=== PATIENT | female | born 1965 | race Caucasian/White ===

== ENCOUNTER 2017-10-18 17:26 | Inpatient (IN) | payer MEDICAID, SELFPAY ==
[2017-10-18 16:35] VITALS: BP 126/78; PULSE 79; RESP 18; TEMP 36.6; O2SAT 98
[2017-10-18 16:37] VITALS: BMI 27.3
--- NOTE | 2017-10-18 17:04 | PCM.HP.STD ---
<Dustin Azul - Last Filed: 10/18/17 17:04> Problem List (1) Cellulitis Status: Acute Qualifiers: Site of cellulitis: extremity Site of cellulitis of extremity: upper extremity Laterality: right Qualified Code(s): L03.113 - Cellulitis of right upper limb (2) Nicotine abuse Status: Chronic (3) Diabetes Status: Chronic Qualifiers: Diabetes mellitus type: type 2 (4) Arthritis Status: Chronic (5) RLS (restless legs syndrome) Status: Chronic (6) Depression Status: Chronic History of Present Illness Date of Admission: 10/18/17 Chief Complaint: right arm wound The patient is a 52 year old F with a hx of diet controlled DMt2, nicotine abuse, depression, arthritis, and RLS, who presents as a direct admit from [facility] ER with pain, swelling, and discharge from a wound on her right upper extremity. She things she scraped it while working outdoors last week. She had some tight arm bands over the area and woke up with severe swelling that caused the arm bands to dig deeply into the tissue of her arms. She presented to [facility] ER on the , had elevated white count and was prescribed clindamycin. She thinks she has had some improvement in the redness, however she became more concerned when the wound opened and she had copious amounts of foul smelling mucopurulent drainage. She denies prior skin infections. She had subjective fevers and chills at home as well, though does not not currently have a fever. She denies cough, SOB, abdominal pain, diarrhea. She has some nausea without vomiting. She states she is a diet controlled diabetic - last a1c 6 months ago was 5.9, used to take glucotrol but no longer does. [] Past Medical History Past Medical History (Chronic Problems): Chronic Problems Nicotine abuse (Chronic) Diabetes (Chronic) Arthritis (Chronic) RLS (restless legs syndrome) (Chronic) Depression (Chronic) Allergies No Known Allergies Allergy (Verified 06/29/13 11:32) Home Medications: Ambulatory Orders Medication Instructions Recorded Clindamycin HCl 300 mg PO 4X/DAY 10/18/17 Gabapentin [Neurontin] 100 mg PO TID 10/18/17 Lamotrigine [Lamictal] 50 mg PO QHS 10/18/17 Meloxicam [Mobic] 15 mg PO DAILY 10/18/17 Sertraline HCl [Zoloft] 100 mg PO QHS 10/18/17 Surgical History: - - cessarian Psychiatric History: Depression 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 Denies: Weight Change HEENT: Denies: Head Aches, Sinus Congestion, Sinus Drainage Cardiovascular: Denies: Chest Pain, Palpitations Respiratory: Denies: Cough, Shortness of Breath, Shortness of breath at rest, Sputum production Gastrointestinal: Reports: Nausea. Denies: Abdominal Pain, Diarrhea, Vomiting Genitourinary: Denies: Dysuria Musculoskeletal: Denies: Joint Pain, Joint Tenderness Skin: Reports: Wounds - right upper ext wound with copious drainage. Denies: Rash Neurological: Denies: Numbness, Tingling, Focal weakness Psychiatric: Reports: Depression. Denies: Anxiety, Homicidal Ideations, Suicidal Ideations Hematologic/ Lymphatic: Denies: Easy Bruising, Easy Bleeding VTE Information - Inpt Only VTE Present on Admission: No VTE Mechan Device Prophylaxis: SCD's VTE Pharm Prophylaxis ordered?: No Patient Problems: Active and Suspected Problems Cellulitis (Acute) - Physical Exam General: Alert, Oriented x3, Cooperative HEENT: Atraumatic, PERRLA, EOMI, Normocephalic Neck: Supple, No JVD, Negative Carotid Bruits Lungs: Clear to auscultation, Normal air movement Cardiovascular: Regular rate, No murmurs Abdomen: Bowel Sounds Present, Soft, Non Tender Extremities: No edema, Capillary Refill Less than 3 Seconds Skin: No rashes, No breakdown, - - right upper extremity, forearm, with annular open wound with with surrounding erythema, sloughing, mucopurulent drainage, some lymphatic stranding up the right arm. inc warmth and tenderness. Musculoskeletal: No Tenderness to Palpation of Joints or Extremities Neurological: Cranial nerves II-XII grossly intact Psych/Mental Status: Normal Affect, Appropriate, Alert and oriented to time, place, person, mood and affect Vital Signs Temp Pulse Resp BP Pulse Ox 97.8 F 79 18 126/78 H 98 10/18/17 16:35 10/18/17 16:35 10/18/17 16:35 10/18/17 16:35 10/18/17 16:35 Oxygen Delivery Method Room Air Weight: 74.389 kg Body Mass Index (BMI) 27.3 Assessment/Plan Active and Suspected Problems Cellulitis (Acute) 1. Cellulitis and abscess RUE in diabetic patient. - now open and draining, small lymph stranding up proximal forearm. Was on clinda x 2 days as outpatient. Somewhat improved. White count resolved (see o/p labs 14-7.8). Wound cultures taken at [facility] - call for report. XR with soft tissue involvement only. Will check CT RUE. Not septic. Start IV vanco. Check MRSA/MSSA screen. Wound care nurse consult. 2. DMt2 - diet controlled - sliding scale. check a1c - last 5.9 6 months ago. restart orals on dc if appropriate. 3. Nicotine abuse - will slow wound healing. 1/2-1 ppd x 42 years. 4. Depression - home meds 5. Arthritis - on mobic/lucy. continue. DVT ppx: lovenox DC planning: Home when stable, doubt home going needs. This patient was seen by Dustin Azul PA-C under the supervision of Doctor Mayda. <Martinez Ohara - Last Filed: 10/18/17 18:27> Problem List (1) Cellulitis Status: Acute Qualifiers: Site of cellulitis: extremity Site of cellulitis of extremity: upper extremity Laterality: right Qualified Code(s): L03.113 - Cellulitis of right upper limb (2) Nicotine abuse Status: Chronic (3) Diabetes Status: Chronic Qualifiers: Diabetes mellitus type: type 2 (4) Arthritis Status: Chronic (5) RLS (restless legs syndrome) Status: Chronic (6) Depression Status: Chronic History of Present Illness The patient is a 52 year old F who developed cellulitis on her arm. This began last week when patient had a hair band on her arm. Patient went to sleep and then woke up and had redness and tightness over that area. Patient had an open wound and then subsequent to [facility] and I received clindamycin. Patient has some surrounding erythema. Patient was [facility]. Patient states that the redness has improved but still is draining was foul-smelling a one-point. 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 Denies: Weight Change HEENT: Denies: Head Aches, Sinus Congestion, Sinus Drainage Cardiovascular: Denies: Chest Pain, Palpitations Respiratory: Denies: Cough, Shortness of Breath, Shortness of breath at rest, Sputum production Gastrointestinal: Reports: Nausea. Denies: Abdominal Pain, Diarrhea, Vomiting Genitourinary: Denies: Dysuria Musculoskeletal: Denies: Joint Pain, Joint Tenderness Skin: Reports: Wounds. Denies: Rash Neurological: Denies: Focal weakness, Numbness, Tingling Psychiatric: Reports: Depression. Denies: Anxiety, Homicidal Ideations, Suicidal Ideations Hematologic/ Lymphatic: Denies: Easy Bruising, Easy Bleeding VTE Information - Inpt Only VTE Present on Admission: No VTE Mechan Device Prophylaxis: SCD's VTE Pharm Prophylaxis ordered?: No - Physical Exam General: Alert, Cooperative, No apparent distress HEENT: Atraumatic, Normocephalic Neck: Supple, No JVD, Negative Carotid Bruits, Negative Hepatojugular Reflux Lungs: Clear to auscultation, Normal air movement Skin: - Psych/Mental Status: Normal Affect, Appropriate Vital Signs Temp Pulse Resp BP Pulse Ox 36.6 C 79 18 126/78 H 98 10/18/17 16:35 10/18/17 16:35 10/18/17 16:35 10/18/17 16:35 10/18/17 16:35 Oxygen Delivery Method Room Air Weight: 74.389 kg Body Mass Index (BMI) 27.3 Assessment/Plan Patient seen and examined independently. Agree with the above note by the physician assistants. 1. right upper extremity cellulitis and abscess The abscess has already drained but patient does have a deep wound there. This is likely due to the fact the patient likely had some trauma associated with prolonged compression due to the hair band that she had on her wrist. Patient notes that the surrounding cellulitis is actually improved since starting on the clindamycin but just more concerned about the drainage that is ongoing Patient will be on vancomycin now Patient had wound ulcer performed at [facility]. They will need to be followed up. And antibiotics addressed accordingly based on results. Will check a CT scan to see if there is any deeper compromise that may warrant a plastics orthopedics to be on consultation. Will have wound care assess and further recommendations. In the meantime, patient will just have dry dressings. Code Visit Inpatient E&M: 87459 Init Hosp L2
[2017-10-18 17:18] VITALS: BMI 27.3
--- NOTE | 2017-10-18 17:26 | CT_ITS ---
Study: CT of the right upper extremity without contrast. CLINICAL HISTORY: Abscess, open and draining of a performed Prior study: None. PROCEDURE: Multiple computed tomographic images of the right forearm were obtained at 2.5 mm intervals using 2.5 mm thick slices in axial projection. Coronal and sagittal reconstructions were obtained. Radiation dose: Total exam DLP: 1064.58 FINDINGS: There is an open skin wound of the lateral distal forearm. There is associated subcutaneous fatty stranding and skin thickening. No abscess is identified. No radiopaque soft tissue foreign body or soft tissue gas is noted. Muscular soft tissue fascial planes are preserved. The right radius and ulna appear intact. CT/Extremity Upper without Contra IMPRESSION: Open skin wound of the lateral distal forearm. There is associated subcutaneous fatty stranding and skin thickening consistent with cellulitis. There is no evidence of abscess or subcutaneous gas. Muscular soft tissue fascial planes are preserved. The underlying osseous structures appear normal. Electronically Signed: Melvin Rivera MD at 20:47 EDT , Service support ,
--- NOTE | 2017-10-18 17:30 | HP.PCM_ITS ---
<Dustin Azul - Last Filed: 10/18/17 17:04> Problem List (1) Cellulitis Status: Acute Qualifiers: Site of cellulitis: extremity Site of cellulitis of extremity: upper extremity Laterality: right Qualified Code(s): L03.113 - Cellulitis of right upper limb (2) Nicotine abuse Status: Chronic (3) Diabetes Status: Chronic Qualifiers: Diabetes mellitus type: type 2 (4) Arthritis Status: Chronic (5) RLS (restless legs syndrome) Status: Chronic (6) Depression Status: Chronic History of Present Illness Date of Admission: 10/18/17 Chief Complaint: right arm wound The patient is a 52 year old F with a hx of diet controlled DMt2, nicotine abuse , depression, arthritis, and RLS, who presents as a direct admit from [facility] ER with pain, swelling, and discharge from a wound on her right upper extremity. She things she scraped it while working outdoors last week. She had some tight arm bands over the area and woke up with severe swelling that caused the arm bands to dig deeply into the tissue of her arms. She presented to [facility] ER on the , had elevated white count and was prescribed clindamycin. She thinks she has had some improvement in the redness, however she became more concerned when the wound opened and she had copious amounts of foul smelling mucopurulent drainage. She denies prior skin infections. She had subjective fevers and chills at home as well, though does not not currently have a fever. She denies cough, SOB, abdominal pain, diarrhea. She has some nausea without vomiting. She states she is a diet controlled diabetic - last a1c 6 months ago was 5.9, used to take glucotrol but no longer does. [] Past Medical History Past Medical History (Chronic Problems): Chronic Problems Nicotine abuse (Chronic) Diabetes (Chronic) Arthritis (Chronic) RLS (restless legs syndrome) (Chronic) Depression (Chronic) Allergies No Known Allergies Allergy (Verified 06/29/13 11:32) Home Medications: Ambulatory Orders Medication Instructions Recorded Clindamycin HCl 300 mg PO 4X/DAY 10/18/17 Gabapentin [Neurontin] 100 mg PO TID 10/18/17 Lamotrigine [Lamictal] 50 mg PO QHS 10/18/17 Meloxicam [Mobic] 15 mg PO DAILY 10/18/17 Sertraline HCl [Zoloft] 100 mg PO QHS 10/18/17 Surgical History: - - cessarian Psychiatric History: Depression 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 Denies: Weight Change HEENT: Denies: Head Aches, Sinus Congestion, Sinus Drainage Cardiovascular: Denies: Chest Pain, Palpitations Respiratory: Denies: Cough, Shortness of Breath, Shortness of breath at rest, Sputum production Gastrointestinal: Reports: Nausea. Denies: Abdominal Pain, Diarrhea, Vomiting Genitourinary: Denies: Dysuria Musculoskeletal: Denies: Joint Pain, Joint Tenderness Skin: Reports: Wounds - right upper ext wound with copious drainage. Denies: Rash Neurological: Denies: Numbness, Tingling, Focal weakness Psychiatric: Reports: Depression. Denies: Anxiety, Homicidal Ideations, Suicidal Ideations Hematologic/ Lymphatic: Denies: Easy Bruising, Easy Bleeding VTE Information - Inpt Only VTE Present on Admission: No VTE Mechan Device Prophylaxis: SCD's VTE Pharm Prophylaxis ordered?: No Patient Problems: Active and Suspected Problems Cellulitis (Acute) - Physical Exam General: Alert, Oriented x3, Cooperative HEENT: Atraumatic, PERRLA, EOMI, Normocephalic Neck: Supple, No JVD, Negative Carotid Bruits Lungs: Clear to auscultation, Normal air movement Cardiovascular: Regular rate, No murmurs Abdomen: Bowel Sounds Present, Soft, Non Tender Extremities: No edema, Capillary Refill Less than 3 Seconds Skin: No rashes, No breakdown, - - right upper extremity, forearm, with annular open wound with with surrounding erythema, sloughing, mucopurulent drainage, some lymphatic stranding up the right arm. inc warmth and tenderness. Musculoskeletal: No Tenderness to Palpation of Joints or Extremities Neurological: Cranial nerves II-XII grossly intact Psych/Mental Status: Normal Affect, Appropriate, Alert and oriented to time, place, person, mood and affect Vital Signs Temp Pulse Resp BP Pulse Ox 97.8 F 79 18 126/78 H 98 10/18/17 16:35 10/18/17 16:35 10/18/17 16:35 10/18/17 16:35 10/18/17 16:35 Oxygen Delivery Method Room Air Weight: 74.389 kg Body Mass Index (BMI) 27.3 Assessment/Plan Active and Suspected Problems Cellulitis (Acute) 1. Cellulitis and abscess RUE in diabetic patient. - now open and draining, small lymph stranding up proximal forearm. Was on clinda x 2 days as outpatient. Somewhat improved. White count resolved (see o/p labs 14-7.8). Wound cultures taken at [facility] - call for report. XR with soft tissue involvement only. Will check CT RUE. Not septic. Start IV vanco. Check MRSA/MSSA screen. Wound care nurse consult. 2. DMt2 - diet controlled - sliding scale. check a1c - last 5.9 6 months ago. restart orals on dc if appropriate. 3. Nicotine abuse - will slow wound healing. 1/2-1 ppd x 42 years. 4. Depression - home meds 5. Arthritis - on mobic/lucy. continue. DVT ppx: lovenox DC planning: Home when stable, doubt home going needs. This patient was seen by Dustin Azul PA-C under the supervision of Doctor Mayda. <Martinez Ohara - Last Filed: 10/18/17 18:27> Problem List (1) Cellulitis Status: Acute Qualifiers: Site of cellulitis: extremity Site of cellulitis of extremity: upper extremity Laterality: right Qualified Code(s): L03.113 - Cellulitis of right upper limb (2) Nicotine abuse Status: Chronic (3) Diabetes Status: Chronic Qualifiers: Diabetes mellitus type: type 2 (4) Arthritis Status: Chronic (5) RLS (restless legs syndrome) Status: Chronic (6) Depression Status: Chronic History of Present Illness The patient is a 52 year old F who developed cellulitis on her arm. This began last week when patient had a hair band on her arm. Patient went to sleep and then woke up and had redness and tightness over that area. Patient had an open wound and then subsequent to [facility] and I received clindamycin. Patient has some surrounding erythema. Patient was [facility]. Patient states that the redness has improved but still is draining was foul-smelling a one-point. 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 Denies: Weight Change HEENT: Denies: Head Aches, Sinus Congestion, Sinus Drainage Cardiovascular: Denies: Chest Pain, Palpitations Respiratory: Denies: Cough, Shortness of Breath, Shortness of breath at rest, Sputum production Gastrointestinal: Reports: Nausea. Denies: Abdominal Pain, Diarrhea, Vomiting Genitourinary: Denies: Dysuria Musculoskeletal: Denies: Joint Pain, Joint Tenderness Skin: Reports: Wounds. Denies: Rash Neurological: Denies: Focal weakness, Numbness, Tingling Psychiatric: Reports: Depression. Denies: Anxiety, Homicidal Ideations, Suicidal Ideations Hematologic/ Lymphatic: Denies: Easy Bruising, Easy Bleeding VTE Information - Inpt Only VTE Present on Admission: No VTE Mechan Device Prophylaxis: SCD's VTE Pharm Prophylaxis ordered?: No - Physical Exam General: Alert, Cooperative, No apparent distress HEENT: Atraumatic, Normocephalic Neck: Supple, No JVD, Negative Carotid Bruits, Negative Hepatojugular Reflux Lungs: Clear to auscultation, Normal air movement Skin: - Psych/Mental Status: Normal Affect, Appropriate Vital Signs Temp Pulse Resp BP Pulse Ox 36.6 C 79 18 126/78 H 98 10/18/17 16:35 10/18/17 16:35 10/18/17 16:35 10/18/17 16:35 10/18/17 16:35 Oxygen Delivery Method Room Air Weight: 74.389 kg Body Mass Index (BMI) 27.3 Assessment/Plan Patient seen and examined independently. Agree with the above note by the physician assistants. 1. right upper extremity cellulitis and abscess * The abscess has already drained but patient does have a deep wound there. This is likely due to the fact the patient likely had some trauma associated with prolonged compression due to the hair band that she had on her wrist. * Patient notes that the surrounding cellulitis is actually improved since starting on the clindamycin but just more concerned about the drainage that is ongoing * Patient will be on vancomycin now * Patient had wound ulcer performed at [facility]. They will need to be followed up. And antibiotics addressed accordingly based on results. * Will check a CT scan to see if there is any deeper compromise that may warrant a plastics orthopedics to be on consultation. * Will have wound care assess and further recommendations. In the meantime, patient will just have dry dressings. * Code Visit Inpatient E&M: [id number] Init Hosp L2
[2017-10-18] MEDS: Enoxaparin 40 MG/0.4 ML Syringe SC (18:38)
[2017-10-18] MEDS: traMADol 50 MG Tablet PO (18:42)
[2017-10-18 20:56] LABS: M R Staph aureus DNA By PCR Negative (Negative); Probe Check PASS; Specimen Processing Control PASS; Staph aureus DNA By PCR NEGATIVE (Negative)
[2017-10-18 21:43] VITALS: BP 114/72; PULSE 70; RESP 16; TEMP 36.7; O2SAT 94
[2017-10-18 22:05] LABS: Bedside Glucose 113 mg/dL (70-110)
[2017-10-18] MEDS: 0.9% NaCl Peripheral Flush Adult/Peds IV (23:32)
[2017-10-18] MEDS: Ondansetron 4 MG/2 ML Vial IV (23:32)
[2017-10-18] MEDS: Ketorolac 30 MG/ML Syringe IV (23:32)
[2017-10-19 03:43] VITALS: BP 92/56; PULSE 58; RESP 16; TEMP 36.6; O2SAT 94
[2017-10-19] MEDS: traMADol 50 MG Tablet PO ×2 (03:54→10:40)
[2017-10-19] MEDS: Ketorolac 30 MG/ML Syringe IV (05:30)
[2017-10-19 06:06] LABS: Absolute Lymphocyte Count 1.68 X10^3/ul (0.83-4.51); Absolute Neutrophil Count 1.6 X10^3/uL (2.0-7.7); Basophil# 0.04 X10^3/uL; Eosinophil# 0.26 X10^3/uL; Eosinophils% 6.4 % (0-5); Hematocrit 41.7 % (37-47); Hemoglobin 14.5 g/dl (12.0-15.0); Lymphocyte # 1.68 X10^3/ul (4.0); Lymphocyte % 41.2 % (19-41); Mean Corp Hgb Conc 34.8 g/gl (32-36); Mean Corpuscular Hgb 32.6 pg (27.0-32.0); Mean Corpuscular Volume 93.7 fL (81-99); Mean Platelet Vol. 10.8 fl (6.2-12.0); Monocyte# 0.45 X10^3/uL; Neutrophil # 1.59 X10^3/uL (2.7-7.7); Neutrophil % 38.9 % (47-70); Platelet Count 245 K/mm3 (150-450); RBC Distribution Width CV 12.5 % (11.6-14.6); RBC Distribution Width SD 42.3 fl (35.1-43.9); Red Blood Count 4.45 M/mm3 (4.2-5.4); White Blood Count 4.1 K/mm3 (4.4-11.0)
[2017-10-19 06:07] LABS: POSITIVE COUNT NO; POSITIVE DIFFERENTIAL NO; POSITIVE MORPHOLOGY NO
[2017-10-19 06:21] LABS: Anion Gap 8 (5-15); BUN 14 mg/dL (7-18); BUN/Creat Ratio 15.2 RATIO (10-20); Calcium,Total 8.9 mg/dL (8.5-10.1); Chloride 107 mmol/L (98-107); Creatinine, Serum 0.92 mg/dL (0.55-1.02); EST Glomerular Filtration Rate 68 mL/min (>60); Est Glom Filt Rate - Afr Amer 82 mL/min (>60); Estimated Creatinine Clearance 64.37 ml/min; Glucose 93 mg/dL (74-106); Potassium 3.8 mmol/L (3.5-5.1); Sodium Level 139 mmol/L (136-145)
--- NOTE | 2017-10-19 06:26 | PCM.PROGNOTE ---
Patient Problems: Active and Suspected Problems Cellulitis (Acute) Subjective: Patient is a 52-year-old male with a past medical history of restless leg syndrome, depression, diet-controlled diabetes mellitus type 2, tobacco dependence, osteoarthritis and tobacco dependence who was sent to the [facility] emergency department on 10/18/2017 from [facility] with complaints of pain, swelling and foul-smelling purulent discharge from a wound on her right upper extremity. She had previously been seen at [facility] on 10/16/2017 and was prescribed clindamycin. Vital signs at arrival to the emergency room were temperature 97.8, pulse rate 79, blood pressure 126/78, respiratory rate 18 and she was 98% saturated on room air. White blood cell count was 4.1 with 6.4% eosinophils and 39% neutrophils. Hemoglobin and platelets were normal. BMP was unremarkable. PCR on the drainage was negative for MRSA and negative for staph aureus. Wound culture was done at [facility]. CT scan of the right upper extremity showed no evidence of abscess or subcutaneous gas. Muscular soft tissue fascial planes were preserved and the underlying osseous structures appeared normal. There was evidence of cellulitis. She was admitted to the hospital and started on Vancomycin. BP is low today at 71/47-82/40. The HR is in the 60's. She complains of pain in the right arm which is not adequately relieved with tramadol. 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 The white blood cell count today is 4.1, down from 14 at [facility] on 10/18/2017. Hemoglobin and platelets are within normal limits. BMP is unremarkable. - Physical Exam General: Alert, Oriented x3, Cooperative, No apparent distress HEENT: Atraumatic, PERRLA, EOMI Oral: Moist Mucosa Neck: Supple, Trachea Midline Lungs: Clear to auscultation Cardiovascular: Regular rate, Regular Rhythm, Normal S1, Normal S2, No murmurs, No rub noted, No Gallop Abdomen: Bowel Sounds Present, Soft, Non Tender, Non-Distended Extremities: No clubbing, No cyanosis, No Calf Tenderness Skin: No rashes, - - there is a large flucuant area on the R forearm, extensor surface with copious amounts of pus and surrounding erythema and warmth to touch. Neurological: Cranial nerves II-XII grossly intact, Neuro grossly intact Psych/Mental Status: Normal Affect, Appropriate Vital Signs Temp Pulse Resp BP Pulse Ox 97.9 F 58 L 16 92/56 L 94 10/19/17 03:43 10/19/17 03:43 10/19/17 03:43 10/19/17 03:43 10/19/17 03:43 Oxygen Delivery Method Room Air Weight: 164 lb Body Mass Index (BMI) 27.3 Intake and Output for Last 24 Hours 10/17/17 10/18/17 10/19/17 23:59 23:59 23:59 Intake Total 678 / 678 300 / 300 Balance 678 / 678 300 / 300 Laboratory Tests Past 24 Hrs 10/18/17 10/19/17 10/19/17 18:35 05:20 05:20 WBC 4.1 L RBC 4.45 Hgb 14.5 Hct 41.7 MCV 93.7 MCH 32.6 H MCHC 34.8 RDW 12.5 RDW Differential 42.3 Plt Count 245 MPV 10.8 Immature Gran % (Auto) 1.500 H Neut % (Auto) 38.9 L Lymph % (Auto) 41.2 H [place] % (Auto) 11.0 H Eos % (Auto) 6.4 H Baso % (Auto) 1.0 Absolute Neuts (auto) 1.6 L Absolute Lymphs (auto) 1.68 Total Counted Not Reportable Sodium Potassium Chloride Carbon Dioxide Anion Gap BUN Creatinine Estim Creat Clear Calc Est GFR (MDRD) Af Amer Est GFR (MDRD) Non-Af BUN/Creatinine Ratio Glucose Hemoglobin A1c Pending Calcium S.aureus Protein A PCR NEGATIVE MRSA (PCR) Negative 10/19/17 05:20 WBC RBC Hgb Hct MCV MCH MCHC RDW RDW Differential Plt Count MPV Immature Gran % (Auto) Neut % (Auto) Lymph % (Auto) [place] % (Auto) Eos % (Auto) Baso % (Auto) Absolute Neuts (auto) Absolute Lymphs (auto) Total Counted Sodium 139 Potassium 3.8 Chloride 107 Carbon Dioxide 24.0 Anion Gap 8 BUN 14 Creatinine 0.92 Estim Creat Clear Calc 64.37 Est GFR (MDRD) Af Amer 82 Est GFR (MDRD) Non-Af 68 BUN/Creatinine Ratio 15.2 Glucose 93 Hemoglobin A1c Calcium 8.9 S.aureus Protein A PCR MRSA (PCR) POC Glucose 10/18/17 21:59 POC Glucose 113 H Medical Necessity - Tobacco Use Smoking Status: Current every day smoker Tobacco Use: Cigarettes Assessment/Plan Active and Suspected Problems Cellulitis (Acute) Impressions 1. cellulitis and devitalized tissue RUE - MRSA and SA PCR negative. Will DC the Vanco and start Ancef. Elevate the RUE. Dr. Ray has been consulted and I suspect he will take to the OR to debride 2. tobacco dependence - will order a nicotine patch. she went outside to smoke without letting anyone know she was leaving the floor and she turned the IV pump off. Will DC MS since she can not be trusted to remain on the floor and use PO [place] for pain. 3. Hypotension - responded well to a fluid bolus She was seen independently and in conjunction with Dustin CASTILLO. We discussed the plan of treatment and orders were written. Code Visit Inpatient E&M: 22833 Subs Hosp L2
--- NOTE | 2017-10-19 06:33 | PN_ITS ---
Patient Problems: Active and Suspected Problems Cellulitis (Acute) Subjective: Patient is a 52-year-old male with a past medical history of restless leg syndrome, depression, diet-controlled diabetes mellitus type 2, tobacco dependence, osteoarthritis and tobacco dependence who was sent to the [facility] emergency department on 10/18/2017 from [facility] with complaints of pain, swelling and foul-smelling purulent discharge from a wound on her right upper extremity. She had previously been seen at [facility] on 2017 and was prescribed clindamycin. Vital signs at arrival to the emergency room were temperature 97.8, pulse rate 79, blood pressure 126/78, respiratory rate 18 and she was 98% saturated on room air. White blood cell count was 4.1 with 6.4% eosinophils and 39% neutrophils. Hemoglobin and platelets were normal. BMP was unremarkable. PCR on the drainage was negative for MRSA and negative for staph aureus. Wound culture was done at [facility]. CT scan of the right upper extremity showed no evidence of abscess or subcutaneous gas. Muscular soft tissue fascial planes were preserved and the underlying osseous structures appeared normal. There was evidence of cellulitis. She was admitted to the hospital and started on Vancomycin. BP is low today at 71/47-82/40. The HR is in the 60's. She complains of pain in the right arm which is not adequately relieved with tramadol. 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 The white blood cell count today is 4.1, down from 14 at [facility] on 10/18/2017. Hemoglobin and platelets are within normal limits. BMP is unremarkable. - Physical Exam General: Alert, Oriented x3, Cooperative, No apparent distress HEENT: Atraumatic, PERRLA, EOMI Oral: Moist Mucosa Neck: Supple, Trachea Midline Lungs: Clear to auscultation Cardiovascular: Regular rate, Regular Rhythm, Normal S1, Normal S2, No murmurs, No rub noted, No Gallop Abdomen: Bowel Sounds Present, Soft, Non Tender, Non-Distended Extremities: No clubbing, No cyanosis, No Calf Tenderness Skin: No rashes, - - there is a large flucuant area on the R forearm, extensor surface with copious amounts of pus and surrounding erythema and warmth to touch. Neurological: Cranial nerves II-XII grossly intact, Neuro grossly intact Psych/Mental Status: Normal Affect, Appropriate Vital Signs Temp Pulse Resp BP Pulse Ox 97.9 F 58 L 16 92/56 L 94 10/19/17 03:43 10/19/17 03:43 10/19/17 03:43 10/19/17 03:43 10/19/17 03:43 Oxygen Delivery Method Room Air Weight: 164 lb Body Mass Index (BMI) 27.3 Intake and Output for Last 24 Hours 10/17/17 10/18/17 10/19/17 23:59 23:59 23:59 Intake Total 678 / 678 300 / 300 Balance 678 / 678 300 / 300 Laboratory Tests Past 24 Hrs 10/18/17 10/19/17 10/19/17 18:35 05:20 05:20 WBC 4.1 L RBC 4.45 Hgb 14.5 Hct 41.7 MCV 93.7 MCH 32.6 H MCHC 34.8 RDW 12.5 RDW Differential 42.3 Plt Count 245 MPV 10.8 Immature Gran % (Auto) 1.500 H Neut % (Auto) 38.9 L Lymph % (Auto) 41.2 H [place] % (Auto) 11.0 H Eos % (Auto) 6.4 H Baso % (Auto) 1.0 Absolute Neuts (auto) 1.6 L Absolute Lymphs (auto) 1.68 Total Counted Not Reportable Sodium Potassium Chloride Carbon Dioxide Anion Gap BUN Creatinine Estim Creat Clear Calc Est GFR (MDRD) Af Amer Est GFR (MDRD) Non-Af BUN/Creatinine Ratio Glucose Hemoglobin A1c Pending Calcium S.aureus Protein A PCR NEGATIVE MRSA (PCR) Negative 10/19/17 05:20 WBC RBC Hgb Hct MCV MCH MCHC RDW RDW Differential Plt Count MPV Immature Gran % (Auto) Neut % (Auto) Lymph % (Auto) [place] % (Auto) Eos % (Auto) Baso % (Auto) Absolute Neuts (auto) Absolute Lymphs (auto) Total Counted Sodium 139 Potassium 3.8 Chloride 107 Carbon Dioxide 24.0 Anion Gap 8 BUN 14 Creatinine 0.92 Estim Creat Clear Calc 64.37 Est GFR (MDRD) Af Amer 82 Est GFR (MDRD) Non-Af 68 BUN/Creatinine Ratio 15.2 Glucose 93 Hemoglobin A1c Calcium 8.9 S.aureus Protein A PCR MRSA (PCR) POC Glucose 10/18/17 21:59 POC Glucose 113 H Medical Necessity - Tobacco Use Smoking Status: Current every day smoker Tobacco Use: Cigarettes Assessment/Plan Active and Suspected Problems Cellulitis (Acute) Impressions 1. cellulitis and devitalized tissue RUE - MRSA and SA PCR negative. Will DC the Vanco and start Ancef. Elevate the RUE. Dr. Ray has been consulted and I suspect he will take to the OR to debride 2. tobacco dependence - will order a nicotine patch. she went outside to smoke without letting anyone know she was leaving the floor and she turned the IV pump off. Will DC MS since she can not be trusted to remain on the floor and use PO [place] for pain. 3. Hypotension - responded well to a fluid bolus She was seen independently and in conjunction with Dustin CASTILLO. We discussed the plan of treatment and orders were written. Code Visit Inpatient E&M: 15486 Subs Hosp L2
[2017-10-19 06:36] LABS: Bedside Glucose 97 mg/dL (70-110)
--- NOTE | 2017-10-19 07:28 | PCM.RX.CS ---
Consult Pharmacy has been consulted to manage selected antiobiotic: Vancomycin Type of Consult: Follow-up Suspected Infection: Skin/Soft tissue Prior Doses of Antibiotics Received/Current Regimen: Medications Vancomycin HCl 750 mg/ Sodium (Chloride) 265 mls @ 265 mls/hr IV Q8H RONALD Last Admin: 10/19/17 05:31 Dose: 265 mls/hr Labs: Sodium 139 mmol/L (136-145) 10/19/17 05:20 Potassium 3.8 mmol/L (3.5-5.1) 10/19/17 05:20 Chloride 107 mmol/L (98-107) 10/19/17 05:20 Carbon Dioxide 24.0 mmol/L (21.0-32.0) 10/19/17 05:20 Anion Gap 8 (5-15) 10/19/17 05:20 BUN 14 mg/dL (7-18) 10/19/17 05:20 Creatinine 0.92 mg/dL (0.55-1.02) 10/19/17 05:20 Est GFR (MDRD) Af Amer 82 mL/min (>60) 10/19/17 05:20 Est GFR (MDRD) Non-Af 68 mL/min (>60) 10/19/17 05:20 BUN/Creatinine Ratio 15.2 RATIO (10-20) 10/19/17 05:20 Glucose 93 mg/dL (74-106) 10/19/17 05:20 Weight used for dosin kg Estimated Creatinine Clearance: 65 mL/min Goal Trough: 10-15 mcg/mL Pharmacy Plan for Drug Dosing: Recommend vancomycin 1000mg IV q12h. Check trough prior to 4th dose. Pharmacy Service will continue to monitor and adjust dosing as required. Follow-Up Labs: Trough Vancomycin - 10/21/17 @ 0600
[2017-10-19 08:32] VITALS: BP 71/47; PULSE 67; RESP 18; TEMP 36.7; O2SAT 92
[2017-10-19 08:36] VITALS: BP 82/40
[2017-10-19] MEDS: Acetaminophen 325 MG Tablet 650 MG PO (08:43)
[2017-10-19] MEDS: Gabapentin 100 MG Capsule PO ×3 (08:44→17:12)
[2017-10-19] MEDS: Meloxicam 15 MG Tablet PO (08:44)
[2017-10-19] MEDS: 0.9% Normal Saline 1,000 ML 999 ML IV (09:13)
[2017-10-19] MEDS: Enoxaparin 40 MG/0.4 ML Syringe SC (09:16)
--- NOTE | 2017-10-19 09:21 | NURSING ---
wound photo: right forearm
[2017-10-19 09:57] LABS: Hemoglobin A1c 5.5 % (4.2-6.3)
[2017-10-19] MEDS: 0.9% Normal Saline 1,000 ML 125 ML IV (10:41)
[2017-10-19] MEDS: Cefazolin 1 GM/50 ML BAG IV ×2 (10:41→21:52)
[2017-10-19 10:46] VITALS: BP 91/61; PULSE 74; RESP 18; O2SAT 96
--- NOTE | 2017-10-19 11:20 | PCA ---
Faxed over orders to get medical records for patient from [facility]
--- NOTE | 2017-10-19 11:43 | PCA ---
recevied medical records for patient
[2017-10-19 11:45] LABS: Bedside Glucose 99 mg/dL (70-110)
[2017-10-19] MEDS: HYDROcodone Bitartrate/Apap 5/325 Tablet PO ×3 (12:05→20:30)
[2017-10-19 14:29] VITALS: BP 108/71; PULSE 78; RESP 18; TEMP 36.6; O2SAT 96
--- NOTE | 2017-10-19 15:17 | CASEMGMT ---
See SURENDRA SEXTON Assessment Link. DC Plan undetermined. -Pt to have I/D tomorrow by Dr. Ray. DC needs to be determined on wound care, antibiotics and if wound vac would be recommended. -Pt states she does not have PCP, but her [facility] Car Repairman is assisting her with names for Digital Marketing Program Manager, psychiatry, PCP. SURENDRA SEXTON discussed that f/u will be determined, however brochure given for [facility] clinic if stat care is needed prior to her having set up with PCP. Silvio GUILLENN RN ACM
[2017-10-19 16:31] LABS: Bedside Glucose 115 mg/dL (70-110)
--- NOTE | 2017-10-19 17:34 | CON.PCM_ITS ---
Reason for Consult Date of Consultation: 10/19/17 Reason for Consultation: Nonhealing infected ulcer abscess dorsal radial aspect mid right forearm. REFERRING PHYSICIAN: Dr. Mae. COIN MACHINE COLLECTOR SUPERVISOR: Dr. Ray. History of Present Illness: The patient is a 52 year old F with a history of diabetes mellitus was admitted yesterday with increasing redness and swelling and pain and drainage from an ulcer on her right forearm. She denies any trauma. She denies any IV drug use. She felt febrile at home. She was initially started on Vancomycin and Zosyn. She has since been changed to Ancef. Her WBC was 4.1. Her HgbA1c was 5.5. She had a CT scan done which showed an open skin wound of the lateral distal forearm and associated subcutaneous fatty stranding and skin thickening and no abscess seen and no radiopaque soft tissue foreign body or soft tissue gas noted. The right radius and ulna appear intact. I was asked to evaluate this patient for surgical options for treatment. Past Medical History Past Medical History (Chronic Problems): Chronic Problems Smoker (Chronic) Diabetes (Chronic) Arthritis (Chronic) RLS (restless legs syndrome) (Chronic) Depression (Chronic) Allergies No Known Allergies Allergy (Verified 06/29/13 11:32) Current Medications Hydrocodone Bitart/Acetaminophen ([place] 5mg-325mg) 1 - 2 tablet PO Q4H PRN Enoxaparin Sodium (Lovenox) 40 mg SC DAILY RONALD Famotidine (Pepcid) 20 mg PO BID RONALD Gabapentin (Neurontin) 100 mg PO TIDCM RONALD Glucagon () 1 mg IM .X1 PRN Cefazolin Sodium () 1 gm in 50 mls @ 100 mls/hr IV Q8 RONALD Insulin Aspart (Novolog Flexpen (Bkc)) 0 units SC ACHS RONALD Lactobacillus Acidophilus (Acidophilus) 1 tablet PO BID RONALD Lamotrigine (Lamictal Chew) 50 mg PO QHS RONALD Meloxicam (Mobic) 15 mg PO DAILY RONALD Morphine Sulfate () 4 mg IV Q3H PRN Nicotine (Nicoderm Cq (Pbkc)) 21 mg TRANSDERM. DAILY RONALD Ondansetron HCl (Zofran) 4 mg IV Q6H PRN Senna/Docusate Sodium (Senokot-S, Maryuri-Colace) 2 tablet PO BID RONALD Sertraline HCl (Zoloft) 100 mg PO QHS [facility] Home Medications: Ambulatory Orders Medication Instructions Recorded Gabapentin [Neurontin] 100 mg PO TID 10/18/17 Lamotrigine [Lamictal] 50 mg PO QHS 10/18/17 Meloxicam [Mobic] 15 mg PO DAILY 10/18/17 Sertraline HCl [Zoloft] 100 mg PO QHS 10/18/17 Cefadroxil [Duricef] 1,000 mg PO BID #12 cap 10/21/17 Hydrocodone Bitart/Apap 5-325 1 - 2 tab PO Q4H PRN PRN 7 Days 10/21/17 [Rosenhayn 5/325] #30 tab Lactobacillus Acidophilus 1 tab PO BID #20 tab 10/21/17 [Acidophilus] Surgical History: - - . Psychiatric History: Depression TWIST MAKER History: No pertinent TWIST MAKER history Lives: With Family Smoking Status: Current every day smoker Tobacco Use: Cigarettes Alcohol: None Drugs: None - *Family History Maternal History Items: Diabetes Paternal History Items: Cancer Review of Systems Comment: Constitutional: Reports: Chills, Fever. Denies: Weight Change. HEENT : Denies: Head Aches, Sinus Congestion, Sinus Drainage. Cardiovascular: Denies : Chest Pain, Palpitations. Respiratory: Denies: Cough, Shortness of Breath, Shortness of breath at rest, Sputum production. Gastrointestinal: Reports: Nausea. Denies: Abdominal Pain, Diarrhea, Vomiting. Genitourinary: Denies: Dysuria. Musculoskeletal: Denies: Joint Pain, Joint Tenderness. Skin: Reports : Wounds - right upper ext wound with copious drainage. Denies: Rash. Neurological: Denies: Numbness, Tingling, Focal weakness. Psychiatric: Reports : Depression. Denies: Anxiety, Homicidal Ideations, Suicidal Ideations. Hematologic/ Lymphatic: Denies: Easy Bruising, Easy Bleeding - Physical Exam General: Alert, Oriented x3. HEENT: PERRLA, EOMI. Neck: Supple, nontender. No cervical adenopathy. Lungs: Clear to auscultation. Cardiovascular: Regular rate, and rhythm. Abdomen: Soft, Nondistended. Extremities: No edema, Capillary Refill Less than 3 Seconds. Skin: On the mid dorsal radial aspect right forearm is a nonhealing ulcer with exudate and mucopurulent drainage. Some tissue slough present. Surrounding redness and mild swelling and tenderness to palpation. Measures 2.5 x 1.5 x 0.5 cm. Finger range of motion intact. Wrist range of motion intact. No elbow tenderness. Elbow range of motion intact. No axillary adenopathy. Neurological: Cranial nerves II-XII grossly intact Psych/Mental Status: Normal Affect, Appropriate, Alert and oriented to time, place, person, mood and affect. Vital Signs Temp Pulse Resp BP Pulse Ox 97.8 F 78 18 108/71 96 10/19/17 14:29 10/19/17 14:29 10/19/17 14:29 10/19/17 14:29 10/19/17 14:29 Oxygen Delivery Method Room Air Weight: 164 lb Body Mass Index (BMI) 27.3 Intake and Output for Last 24 Hours 10/17/17 10/18/17 10/19/17 23:59 23:59 23:59 Intake Total 678 / 678 2595 / 2595 Balance 678 / 678 2595 / 2595 Microbiology Past 72 Hours 10/19/17 11:55 Gram Stain - Final Abs - Right Forearm Laboratory Tests Past 24 Hrs 10/18/17 10/19/17 10/19/17 18:35 05:20 05:20 WBC 4.1 L RBC 4.45 Hgb 14.5 Hct 41.7 MCV 93.7 MCH 32.6 H MCHC 34.8 RDW 12.5 RDW Differential 42.3 Plt Count 245 MPV 10.8 Immature Gran % (Auto) 1.500 H Neut % (Auto) 38.9 L Lymph % (Auto) 41.2 H [place] % (Auto) 11.0 H Eos % (Auto) 6.4 H Baso % (Auto) 1.0 Absolute Neuts (auto) 1.6 L Absolute Lymphs (auto) 1.68 Total Counted Not Reportable Sodium Potassium Chloride Carbon Dioxide Anion Gap BUN Creatinine Estim Creat Clear Calc Est GFR (MDRD) Af Amer Est GFR (MDRD) Non-Af BUN/Creatinine Ratio Glucose Hemoglobin A1c 5.5 Calcium S.aureus Protein A PCR NEGATIVE MRSA (PCR) Negative 10/19/17 05:20 WBC RBC Hgb Hct MCV MCH MCHC RDW RDW Differential Plt Count MPV Immature Gran % (Auto) Neut % (Auto) Lymph % (Auto) [place] % (Auto) Eos % (Auto) Baso % (Auto) Absolute Neuts (auto) Absolute Lymphs (auto) Total Counted Sodium 139 Potassium 3.8 Chloride 107 Carbon Dioxide 24.0 Anion Gap 8 BUN 14 Creatinine 0.92 Estim Creat Clear Calc 64.37 Est GFR (MDRD) Af Amer 82 Est GFR (MDRD) Non-Af 68 BUN/Creatinine Ratio 15.2 Glucose 93 Hemoglobin A1c Calcium 8.9 S.aureus Protein A PCR MRSA (PCR) POC Glucose 10/19/17 10/19/17 10/19/17 16:25 11:42 06:24 POC Glucose 115 H 99 97 10/18/17 21:59 POC Glucose 113 H Diagnostic Data Upper Extremity CT 10/18/17 17:26 IMPRESSION: Open skin wound of the lateral distal forearm. There is associated subcutaneous fatty stranding and skin thickening consistent with cellulitis. There is no evidence of abscess or subcutaneous gas. Muscular soft tissue fascial planes are preserved. The underlying osseous structures appear normal. Electronically Signed: Melvin Rivera MD at 20:47 EDT , Service support , Assessment/Plan 1. Nonhealing infected diabetic ulcer abscess dorsal radial aspect mid right forearm. 2. Diabetes mellitus. 3. Smoker. CT scan reviewed. Continue Ancef antibiotics. Has draining diabetic ulcer abscess right forearm. Needs operative intervention with incision and drainage and excisional debridement. Will send tissue to Pathology for analysis to rule out carcinoma and to Microbiology for culture. A positive culture may necessitate antibiotic modification. Postop will consider placing the VAC for wound care. Other option includes daily Silver dressing changes. Will followup at the Wound Center after discharge. If there is a plateau in the healing process, can consider delayed closure with skin grafting. Will schedule the operative intervention tomorrow. Surgery will be done under anesthesia and tourniquet control. Anticipate increased metabolic demands from the infection and the surgical wound. Will check a Prealbumin and encourage nutritional supplementation with protein to help the healing process. Patient was informed of the risks and complications of the procedure including alternatives to surgery. These were discussed with her personally. She voices understanding and wishes to proceed. Some of the risks included but were not inclusive of failure to diagnose including symptom relief, pain, infection, numbness, stiffness, loss of digit, need for further surgery, RSD, contracture, and wound healing problems. Encouraged the patient to stop smoking as it may have deleterious effects on wound healing. Code Visit Inpatient E&M: 97757 Init Hosp L2 - ICD-10 - L02.413, L03.113, E11.9, F17.200
[2017-10-19] MEDS: Famotidine 20 MG Tablet PO (20:34)
[2017-10-19] MEDS: Senna/Docusate Sodium 1 Tablet 2 TABLET PO (20:34)
[2017-10-19 20:43] VITALS: BP 131/73; PULSE 62; RESP 14; TEMP 36.6; O2SAT 97
[2017-10-19 20:51] LABS: Bedside Glucose 127 mg/dL (70-110)
[2017-10-20] VITALS (9 sets, daily range): BP systolic 93–126; BP diastolic 60–78; PULSE 64–82; RESP 14–20; TEMP 36.2–37.2; O2SAT 92–98; BMI 27.2
[2017-10-20] MEDS: HYDROcodone Bitartrate/Apap 5/325 Tablet PO ×2 (01:15→15:49)
[2017-10-20] MEDS: 0.9% Normal Saline 1,000 ML 60 ML IV ×2 (02:44→12:49)
--- NOTE | 2017-10-20 05:00 | EKG12_ITS ---
Test Reason : AM EKG Blood Pressure : / mmHG Vent. Rate : 069 BPM Atrial Rate : 069 BPM P-R Int : 146 ms QRS Dur : 076 ms QT Int : 416 ms P-R-T Axes : 067 057 051 degrees QTc Int : 445 ms Normal sinus rhythm Low voltage QRS Borderline ECG No previous ECGs available Confirmed by HIEU WEINSTEIN, JULIA ([id number]), photo editor GERARDO LEMA ([id number]) on 10/29/2017 3:04:07 PM Referred By: Martinez Ohara Confirmed By:JULIA HAGEN MD
[2017-10-20] MEDS: Cefazolin 1 GM/50 ML BAG IV ×3 (05:56→22:03)
[2017-10-20 06:07] LABS: Absolute Lymphocyte Count 1.98 X10^3/ul (0.83-4.51); Absolute Neutrophil Count 1.5 X10^3/uL (2.0-7.7); Basophil# 0.03 X10^3/uL; Basophil% 0.7 % (0-1); Eosinophil# 0.23 X10^3/uL; Eosinophils% 5.3 % (0-5); Hematocrit 36.4 % (37-47); Hemoglobin 12.4 g/dl (12.0-15.0); Lymphocyte # 1.98 X10^3/ul (4.0); Lymphocyte % 45.9 % (19-41); Mean Corp Hgb Conc 34.1 g/gl (32-36); Mean Corpuscular Hgb 32.1 pg (27.0-32.0); Mean Corpuscular Volume 94.3 fL (81-99); Mean Platelet Vol. 10.7 fl (6.2-12.0); Monocyte# 0.56 X10^3/uL; Neutrophil # 1.46 X10^3/uL (2.7-7.7); Neutrophil % 33.9 % (47-70); Platelet Count 229 K/mm3 (150-450); RBC Distribution Width CV 12.3 % (11.6-14.6); RBC Distribution Width SD 41.7 fl (35.1-43.9); Red Blood Count 3.86 M/mm3 (4.2-5.4); White Blood Count 4.3 K/mm3 (4.4-11.0)
[2017-10-20 06:11] LABS: Bedside Glucose 91 mg/dL (70-110)
[2017-10-20 06:17] LABS: POSITIVE COUNT NO; POSITIVE DIFFERENTIAL NO; POSITIVE MORPHOLOGY NO
[2017-10-20 06:18] LABS: Anion Gap 8 (5-15); BUN 8 mg/dL (7-18); BUN/Creat Ratio 12.4 RATIO (10-20); Calcium,Total 8.7 mg/dL (8.5-10.1); Chloride 110 mmol/L (98-107); Creatinine, Serum 0.64 mg/dL (0.55-1.02); EST Glomerular Filtration Rate 103 mL/min (>60); Est Glom Filt Rate - Afr Amer 124 mL/min (>60); Estimated Creatinine Clearance 92.53 ml/min; Glucose 95 mg/dL (74-106); Sodium Level 143 mmol/L (136-145)
--- NOTE | 2017-10-20 07:35 | NURSING ---
Pt is scheduled for surgery this am at 0830. will leave dressing in place.
--- NOTE | 2017-10-20 08:30 | UL_PTH ---
PATIENT: DEBORAH GALO LOC: MS3 U#:[id number] AGE/SX: 52/F ROOM: MS317 RE10/18/[address]: Dr. Coral Mae DO : 1965 BED: 1 DIS: 10/21/2017 SPEC #: [id number] RECD: 10/20/17 10:09 STATUS: KATRINA ERICK #: [id number] TISH: 10/20/17 08:[address]: Coral Mae DEPT: SURGICAL PATHOLOGY RECD BY: Akhil Tomlinson ENTERED: 10/20/17 10:54 SP TYPE: ULCER OTHR DR: DO Dr. Lauri Chang MD No Primary Care Phys Tissues: ULCER Procedures: Surgery Specimen Level III HEADER OPERATION: Surgical preparation dorsal radial aspect mid right forearm PRE-OP DIAGNOSIS: Right mid forearm dorsal medial aspect TISSUE SUBMITTED: Debridement tissue nonhealing infected diabetic ulcer abscess right forearm MICROSCOPIC DIAGNOSIS Skin and soft tissue, right forearm, excision: Ulceration, granulation and associated acute and chronic inflammation. Elastosis of superficial dermis. Micro abscesses. AM:allie 10/21/17 MICROSCOPIC DESCRIPTION Slides are reviewed. GROSS DESCRIPTION Received in fixative is one container labeled with the patient's name and designated debrided tissue ulcer right forearm. The specimen consists of five variable sized pieces of skin and soft tissue measuring in aggregate 5 x 5 x 0.5 cm. One of the pieces has a ring-shaped appearance. Another piece shows a ring-shaped defect in the center. Assessment Manager sections are submitted in two cassettes. / SJ:allie 10/20/17 TC:2 CPT: 73909
--- NOTE | 2017-10-20 09:29 | PCM.IMDPSTOP ---
Immediate Post-Op Note Date of Procedure: 10/20/17 Primary Surgeon/Physician: Lauri Ray maint mechanic: None Pre-Operative Diagnosis: 1. Nonhealing infected diabetic ulcer abscess dorsal radial aspect mid right forearm. 2. Diabetes mellitus. 3. Smoker. Post-Operative Diagnosis: 1. Nonhealing infected diabetic ulcer abscess dorsal radial aspect mid right forearm. 2. Diabetes mellitus. 3. Smoker. 4. Suspect IV drug use. Surgery/Procedure Performed:: Surgical preparation dorsal radial aspect mid right forearm with incision and drainage and excisional debridement including infected thrombosed cephalic vein and underlying extensor tendon sheath (wrist extensors) nonhealing infected diabetic ulcer abscess (13.75 cm2). Description of Surgical Findings:: The patient is a 52 year old F with a history of diabetes mellitus was admitted yesterday with increasing redness and swelling and pain and drainage from an ulcer on her right forearm. She denies any trauma. She denies any IV drug use. She felt febrile at home. She was initially started on Vancomycin and Zosyn. She has since been changed to Ancef. Her WBC was 4.1. Her HgbA1c was 5.5. She had a CT scan done which showed an open skin wound of the lateral distal forearm and associated subcutaneous fatty stranding and skin thickening and no abscess seen and no radiopaque soft tissue foreign body or soft tissue gas noted. The right radius and ulna appear intact. CT scan was done and showed an open skin wound of the lateral distal forearm and associated subcutaneous fatty stranding and skin thickening consistent with cellulitis and no evidence of abscess or subcutaneous gas. Muscular soft tissue fascial planes are preserved. The underlying osseous structures appear normal. Today the patient underwent surgical preparation dorsal radial aspect mid right forearm with incision and drainage and excisional debridement including infected thrombosed cephalic vein and underlying extensor tendon sheath (wrist extensors) nonhealing infected diabetic ulcer abscess (13.75 cm2). Size of defect dorsal radial aspect mid right forearm - 4.3 x 3.2 x 1 cm. The infection involved the ECRL and ECRB wrist extensor tendons. The posterior antebrachial cutaneous nerve was exposed at the radial aspect of the wound. Estimated Blood Loss: 25 ml. Specimen's removed: 1. Nonhealing infected diabetic ulcer abscess dorsal radial aspect mid right forearm to Pathology and Microbiology. 2. MRSA wound DNA by PCR. Drains: None. Type of Anesthesia:: General - Admit VTE Documentation VTE Present on Admission: No VTE Mechan Device Prophylaxis: SCD's VTE Pharm Prophylaxis ordered?: Yes
[2017-10-20 09:50] LABS: Bedside Glucose 93 mg/dL (70-110)
[2017-10-20] MEDS: Morphine 4 MG/ML Syringe IV ×2 (10:46→19:58)
[2017-10-20] MEDS: Famotidine 20 MG Tablet PO ×2 (10:46→22:03)
[2017-10-20 10:56] LABS: M R Staph aureus DNA By PCR Negative (Negative); Probe Check PASS; Specimen Processing Control PASS; Staph aureus DNA By PCR NEGATIVE (Negative)
[2017-10-20] MEDS: Gabapentin 100 MG Capsule PO (12:50)
[2017-10-20] MEDS: HYDROmorphone 0.5 MG/0.5 ML SYRINGE IV (12:52)
--- NOTE | 2017-10-20 16:01 | CHAPLAIN ---
Type of Pastoral Visit _x__ Initial Visit ___ Follow-up Visit ___ On-call Visit ___ General Patient Visit ___ Spiritual Assessment ___ Family Conference ___ Bereavement ___ Rapid Response ___ Code Blue ___ Other (describe below) Pastoral Care Referral From ___ Patient ___ Family _x__ Nurse ___ Physician ___ Home Care Nurse ___ Workers' Compensation Commissioner ___ Other (describe below) Sacrament/Intervention _x__ Active listening ___ Anointing ___ Islam ___ Bereavement ___ Communion _x__ Pat exploration ___ _x__ Life review _x__ Prayer ___ Reconciliation ___ Sacrament of Sick _x__ Supportive presence ___ Wedding ___ Other (describe below) Pastoral Comments patient is tearful and expresses fear about 'losing my arm'; pt tells of her 'former life' and how she is doing so much better now; pt has support and a personal pat in God; pt is talkative and welcomes the visit and prayer;
--- NOTE | 2017-10-20 16:05 | PN_ITS ---
Patient Problems: Active and Suspected Problems Diabetes mellitus with skin ulcer (Acute) nonhealing infected diabetic ulcer abscess dorsal radial aspect mid right forearm Abscess of right forearm (Acute) nonhealing infected diabetic ulcer abscess dorsal radial aspect mid right forearm Cellulitis of right forearm (Acute) dorsal radial aspect mid right forearm Cellulitis (Acute) Subjective: Pt underwent debridement in the OR with Dr. Ray today. Pt seen post op. She has severe pain in her arm despite increased pain medications and is very tearful. She has no fevers or chills. She has no numbness or tingling in her RUE. She has no nausea or vomiting. No SOB or Cough. Pt was noted to have left the floor to smoke last night. She now has a patch on. - Physical Exam General: Alert, Oriented x3, Cooperative HEENT: Atraumatic, PERRLA, EOMI, Normocephalic Neck: Supple, No JVD, Negative Carotid Bruits Lungs: Clear to auscultation, Normal air movement Cardiovascular: Regular rate, No murmurs Abdomen: Bowel Sounds Present, Soft, Non Tender Extremities: No edema, Capillary Refill Less than 3 Seconds, - - wound in bulky dressing. no tracking up the arm. Skin: No rashes, No breakdown Musculoskeletal: No Tenderness to Palpation of Joints or Extremities Neurological: Cranial nerves II-XII grossly intact Psych/Mental Status: Normal Affect, Appropriate, Alert and oriented to time, place, person, mood and affect Vital Signs Temp Pulse Resp BP Pulse Ox 98.6 F 75 18 107/64 93 10/20/17 12:39 10/20/17 12:39 10/20/17 12:39 10/20/17 12:39 10/20/17 12:39 Oxygen Flow Rate (L/min) 2 Oxygen Delivery Method Room Air Weight: 74.3 kg Body Mass Index (BMI) 27.2 Finger Stick Blood Glucose 93 Intake and Output for Last 24 Hours 10/18/17 10/19/17 10/20/17 23:59 23:59 23:59 Intake Total 678 / 678 4354 / 4354 2665 / 2665 Output Total 120 / 120 Balance 678 / 678 4354 / 4354 2545 / 2545 Microbiology Past 72 Hours 10/20/17 09:30 Gram Stain - Final Tissue - Arm Right 10/19/17 11:55 Gram Stain - Final Abs - Right Forearm Wound Culture - Preliminary No growth-Final to follow Laboratory Tests Past 24 Hrs 10/20/17 10/20/17 10/20/17 05:20 05:20 05:20 WBC 4.3 L RBC 3.86 L Hgb 12.4 Hct 36.4 L MCV 94.3 MCH 32.1 H MCHC 34.1 RDW 12.3 RDW Differential 41.7 Plt Count 229 MPV 10.7 Immature Gran % (Auto) 1.200 H Neut % (Auto) 33.9 L Lymph % (Auto) 45.9 H [place] % (Auto) 13.0 H Eos % (Auto) 5.3 H Baso % (Auto) 0.7 Absolute Neuts (auto) 1.5 L Absolute Lymphs (auto) 1.98 Total Counted Not Reportable Immature Plt Fraction Cancelled Retic Count Cancelled Immature Retic Fraction Cancelled Retic Hgb Equivalent Cancelled Sodium 143 Potassium 4.0 Chloride 110 H Carbon Dioxide 25.0 Anion Gap 8 BUN 8 Creatinine 0.64 Estim Creat Clear Calc 92.53 Est GFR (MDRD) Af Amer 124 Est GFR (MDRD) Non-Af 103 BUN/Creatinine Ratio 12.4 Glucose 95 Calcium 8.7 Prealbumin 10.0 L S.aureus Protein A PCR MRSA (PCR) 10/20/17 09:30 WBC RBC Hgb Hct MCV MCH MCHC RDW RDW Differential Plt Count MPV Immature Gran % (Auto) Neut % (Auto) Lymph % (Auto) [place] % (Auto) Eos % (Auto) Baso % (Auto) Absolute Neuts (auto) Absolute Lymphs (auto) Total Counted Immature Plt Fraction Retic Count Immature Retic Fraction Retic Hgb Equivalent Sodium Potassium Chloride Carbon Dioxide Anion Gap BUN Creatinine Estim Creat Clear Calc Est GFR (MDRD) Af Amer Est GFR (MDRD) Non-Af BUN/Creatinine Ratio Glucose Calcium Prealbumin S.aureus Protein A PCR NEGATIVE MRSA (PCR) Negative POC Glucose 10/20/17 10/20/17 10/19/17 09:48 05:57 20:47 POC Glucose 93 91 127 H 10/19/17 16:25 POC Glucose 115 H Medical Necessity - Tobacco Use Smoking Status: Current every day smoker Tobacco Use: Cigarettes Assessment/Plan Active and Suspected Problems Diabetes mellitus with skin ulcer (Acute) nonhealing infected diabetic ulcer abscess dorsal radial aspect mid right forearm Abscess of right forearm (Acute) nonhealing infected diabetic ulcer abscess dorsal radial aspect mid right forearm Cellulitis of right forearm (Acute) dorsal radial aspect mid right forearm Cellulitis (Acute) 1. Cellulitis and nonhealing diabetic ulcer RUE - Post op day #[address] Ray. Deep wound cultures obtained. Checked with [facility] today - final cultures are still pending. Continue wound care and ancef. Pain is significant, however she has a hx of heroin abuse so approach pain management with caution. Blood pressure has improved. Wound healing will be slowed by DMt2 and Nicotine abuse. She may need a wound vac. 2. DMt2 - diet controlled - sliding scale. check a1c - last 5.9 6 months ago. restart orals on dc if appropriate. 3. Nicotine abuse - will slow wound healing. 1/2-1 ppd x 42 years. Now on patch. 4. Depression - home meds 5. Arthritis - on mobic/lucy. continue. DVT ppx: SCDs, restart lovenox tomorrow. DC planning: Home when stable, doubt home going needs. This patient was seen by Dustin Azul PA-C under the supervision of Doctor Mae.
--- NOTE | 2017-10-20 16:22 | CASEMGMT ---
Addendum entered by Annmarie Chapman 10/21/17 09:57: SURENDRA Olivera states that she will set up HHC through [facility]. Original Note: Social Work Note SW received referral for emotional support and possible SNF placement. SW met with pt and introduced self and role at [facility]. SW asked pt about discharge planning and pt states that she would like to go home at discharge. 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 Pt states that she would like to go home with home health care. Pt states that she is unsure of a home health agency that she would like. SW educated pt on [facility] but states that this worker will have to check with them to make sure they are able to accept pt. Pt states understanding. SW asked pt how she is feeling right now after today and pt states that she is feeling irritated and upset. Pt states that Dr. Ray had told pt's family that she was using heroin again and that is what led to the wound on her arm. Pt became tearful when explaining that to this worker. Pt denies the use of heroin and states that she has been clean for five years. SW utilized positive coping skills and listed to pt's feelings and concerns. SW offered empathy and offered support to pt for being clean for five years. Pt thanked this worker for coming in and talking to her. SW met with SURENDRA Mccormack after conversation and Ksenia states that she has concerns for sending pt home as pt is past drug abuser. SW listened to SURENDRA Mccormack's concers and informed Ksenia that this worker will follow up with pt tomorrow to once again confirm discharge plans. Plan: Home with Home Health Care. SW will continue to follow along to assist with discharge planning and see if pt would be agreeable to SNF placement for wound care. Annmarie Chapman LOANS CONSULTANT, COMMUNICATIONS TECH
[2017-10-20] MEDS: Meloxicam 15 MG Tablet PO (17:46)
--- NOTE | 2017-10-20 20:05 | OP.PCM_ITS ---
Report of Operation Date of Procedure: 10/20/17 Pre-Operative Diagnosis: 1. Nonhealing infected diabetic ulcer abscess dorsal radial aspect mid right forearm. 2. Diabetes mellitus. 3. Smoker. Post-Operative Diagnosis: 1. Nonhealing infected diabetic ulcer abscess dorsal radial aspect mid right forearm. 2. Diabetes mellitus. 3. Smoker. 4. Suspect IV drug use. Surgery/Procedure Performed:: Surgical preparation dorsal radial aspect mid right forearm with incision and drainage and excisional debridement including infected thrombosed vein and underlying extensor tendon sheath (wrist extensors ) nonhealing infected diabetic ulcer abscess (13.75 cm2). Description of Surgical Findings:: The patient is a 52 year old F with a history of diabetes mellitus was admitted yesterday with increasing redness and swelling and pain and drainage from an ulcer on her right forearm. She denies any trauma. She denies any IV drug use. She felt febrile at home. She was initially started on Vancomycin and Zosyn. She has since been changed to Ancef. Her WBC was 4.1. Her HgbA1c was 5.5. She had a CT scan done which showed an open skin wound of the lateral distal forearm and associated subcutaneous fatty stranding and skin thickening and no abscess seen and no radiopaque soft tissue foreign body or soft tissue gas noted. The right radius and ulna appear intact. CT scan was done and showed an open skin wound of the lateral distal forearm and associated subcutaneous fatty stranding and skin thickening consistent with cellulitis and no evidence of abscess or subcutaneous gas. Muscular soft tissue fascial planes are preserved. The underlying osseous structures appear normal. Patient was informed of the risks and complications of the procedure including alternatives to surgery. These were discussed with her personally. She voices understanding and wishes to proceed. Some of the risks included but were not inclusive of failure to diagnose including symptom relief, pain, infection, numbness, stiffness, loss of digit, need for further surgery, RSD, contracture, and wound healing problems. Encouraged the patient to stop smoking as it may have deleterious effects on wound healing. Size of defect dorsal radial aspect mid right forearm - 4.3 x 3.2 x 1 cm. The infection involved the ECRL and ECRB wrist extensor tendons. The posterior antebrachial cutaneous nerve was exposed at the radial aspect of the wound. management expert: None Type of Anesthesia:: General Specimen's removed: 1. Nonhealing infected diabetic ulcer abscess dorsal radial aspect mid right forearm to Pathology and Microbiology. 2. MRSA wound DNA by PCR. Drains: None. Estimated Blood Loss (mL): 25 ml. Description of Procedure: Patient was taken to OR in supine position and was placed under general anesthesia. Her right forearm was prepped and draped in the usual fashion. SCD 's were placed for DVT prophylaxis. Perioperative antibiotics were given intravenously. A tourniquet was placed. Under loupe magnification, I proceeded with an incision and drainage of the ulcer down toward the underlying muscular fascia. A lot of fat necrosis was seen. Some exudate seen. The underlying fascia was a little inflamed but looked viable. The underlying muscle looked viable. There was a thrombosed vein in the center of the ulcer. It was thickened from chronic use. It was excised and was thrombosed. It was a branch of the cephalic vein. The chronic thickening was indicative of IV drug use. The surrounding fat necrosis was excised and debrided down to the fascia. The infection extended down to the extensor tendon sheaths of the wrist extensors (ECRL and ECRB). Tissue that was debrided was sent to Pathology for analysis to rule out carcinoma and to Microbiology for culture. A MRSA wound DNA by PCR swab was also done. Hemostasis was obtained with electrocautery. The wound was irrigated with saline. Bleeding was controlled easily so there was no need to use the tourniquet. At the radial aspect of the wound was the posterior antebrachial cutaneous nerve. Will increase the patient's Neurontin postop as I anticipate increased burning nerve pain. The size of the wound after the incision and drainage and excisional debridement was 4.3 x 3.2 x 1 cm. The wound was dressed with Mepitel nonadherent dressing followed by Betadine gauze followed by a dry Kerlix gauze wrap and a compression BOLA wrap. Patient tolerated the procedure well and was sent to PACU in satisfactory condition. She will be sent back upstairs for continued postop care. The VAC will be placed tomorrow. Post discharge she can followup at the [facility] Center. Will encourage range of motion exercises postop to minimize stiffness. Grafts/Implants Used: None. - Complications None. - Admit VTE Documentation VTE Present on Admission: No VTE Mechan Device Prophylaxis: SCD's VTE Pharm Prophylaxis ordered?: Yes Code Visit Surgery Charges CPT - 72746 ICD-10 - L02.413, L03.113, E11.9, F17.200, F11.20 18949 S51.801A, L02.413, L03.113, E11.9, F17.200 , F11.20
[2017-10-20] MEDS: Senna/Docusate Sodium 1 Tablet 2 TABLET PO (22:03)
[2017-10-21] MEDS: 0.9% Normal Saline 1,000 ML 60 ML IV (02:49)
[2017-10-21 02:51] VITALS: BP 104/68; PULSE 67; RESP 15; TEMP 36.6
[2017-10-21] MEDS: HYDROcodone Bitartrate/Apap 5/325 Tablet PO ×3 (02:58→13:14)
[2017-10-21] MEDS: Cefazolin 1 GM/50 ML BAG IV (05:45)
[2017-10-21 05:48] VITALS: BP 97/52; PULSE 67; RESP 15; TEMP 36.3; O2SAT 94
[2017-10-21 06:05] LABS: Bedside Glucose 123 mg/dL (70-110)
[2017-10-21 06:08] LABS: Hematocrit 34.7 % (37-47); Hemoglobin 11.9 g/dl (12.0-15.0); Mean Corp Hgb Conc 34.3 g/gl (32-36); Mean Corpuscular Hgb 31.8 pg (27.0-32.0); Mean Corpuscular Volume 92.8 fL (81-99); Mean Platelet Vol. 10.6 fl (6.2-12.0); Platelet Count 215 K/mm3 (150-450); RBC Distribution Width CV 12.1 % (11.6-14.6); RBC Distribution Width SD 39.8 fl (35.1-43.9); Red Blood Count 3.74 M/mm3 (4.2-5.4); White Blood Count 9.3 K/mm3 (4.4-11.0)
[2017-10-21 06:09] LABS: Scan Indicated on CBC? Y/N NO
[2017-10-21 06:25] LABS: Anion Gap 7 (5-15); BUN 9 mg/dL (7-18); BUN/Creat Ratio 16.3 RATIO (10-20); Calcium,Total 8.9 mg/dL (8.5-10.1); Chloride 111 mmol/L (98-107); Creatinine, Serum 0.55 mg/dL (0.55-1.02); EST Glomerular Filtration Rate 123 mL/min (>60); Est Glom Filt Rate - Afr Amer 148 mL/min (>60); Estimated Creatinine Clearance 107.67 ml/min; Glucose 123 mg/dL (74-106); Potassium 4.1 mmol/L (3.5-5.1); Sodium Level 141 mmol/L (136-145)
[2017-10-21] MEDS: Morphine 4 MG/ML Syringe IV ×2 (06:48→09:57)
[2017-10-21] MEDS: Gabapentin 300 MG Capsule PO (08:43)
[2017-10-21] MEDS: Meloxicam 15 MG Tablet PO (08:44)
[2017-10-21] MEDS: Famotidine 20 MG Tablet PO (08:45)
--- NOTE | 2017-10-21 10:29 | CASEMGMT ---
SURENDRA SEXTON received update from NITHIN Chapman that patient wishes to proceed with discharge home with [facility]. Referral sent yesterday to [facility] and updated today that they are able to accept the patient. SURENDRA SEXTON will continue to follow this patient and plan for a safe discharge.
[2017-10-21 10:37] VITALS: BP 138/73; PULSE 61; RESP 20; TEMP 36.9; O2SAT 99
--- NOTE | 2017-10-21 10:45 | NURSING ---
wound photo: right forearm
--- NOTE | 2017-10-21 11:46 | NURSING ---
noted patient was in hallway toward elevator this nurse got meds from tube system then noticed patient was not longer in elevator. primary RN called. hallways checked and room checked, no patient. pt had not signed out. security called to attempt to locate patient and have her return to unit.
--- NOTE | 2017-10-21 11:50 | NURSING ---
received phone call from gritting machine operator stating security said pt is refusing to return to the unit. Dr. Mae on unit informed of this states to remove everything when she returned, and give AMA form that she will not get a script from her. Primary RN updated. This nurse called security directly whom stated they patient is returning and will be up to unit shortly. 1158 pt did return to unit. Dr. Mae updated that pt did come up more promptly then origionally informed. asked if still wanted to give her AMA formed, told no we will keep her so we can get the wound vac set up but informed to DC IV, pt will be put on PO medications only and asked to consult behavioral health. Primary RN updated. 12:03
--- NOTE | 2017-10-21 13:03 | NURSING ---
on 10/20/17 @ approximately 1600, nurse entered to room to round on pt, pt was sitting up in bed rewrapping any wrap on right forearm pt was not gloved and nurse saw dinner napkin sticking out from any wrap-dressing taken down, unable to reach dr larsen, spoke with wound nurse cleansed wound with .9 sns, adaptic laid in wound bed and then sterile 2x2's, rewarpped w/ any wrap-pt cautioned to not unwrap wound or touch under wrap-pt voiced understanding
--- NOTE | 2017-10-21 13:06 | PCM.DC ---
- Discharge Diagnoses Current Active Problems: Current Active and Chronic Problems Diabetes mellitus with skin ulcer (Acute) nonhealing infected diabetic ulcer abscess dorsal radial aspect mid right forearm Abscess of right forearm (Acute) nonhealing infected diabetic ulcer abscess dorsal radial aspect mid right forearm Cellulitis of right forearm (Acute) dorsal radial aspect mid right forearm Cellulitis (Acute) Nicotine abuse (Chronic) Diabetes (Chronic) Arthritis (Chronic) RLS (restless legs syndrome) (Chronic) Depression (Chronic) You will use the following diet at home:: Calorie/Carbohydrate Controlled (specify 1200, 1400, etc) - carb controlled Your food should be the consistency of: Regular Your liquids should be the consistency of: Regular/Thin Discharge Activity: May not drive while taking narcotic pain medications., - - do not immerse the wound/wound vac in water Call your doctor if you observe: Fever of 101 or Higher, Inability to have a bowel movement, - - rash, diarrhea, fever/chills Additional Instructions: You will follow up in the wound care center until the wound is healed. I have give you a prescription for an antibitoic called duricef, similar to the Ancef you have been on, and you will take this twice a day until gone. I have given you a precription for Vicodin which should last a week and at that time you can start Tylenol as needed for pain. I think you need psychiatric help [place], You are emotionally labile and not following instructions. you removed the wound dressing yesterday and there was a dirty napkin in the dressing when it was replaced....you are contaminating the wound. You went off the floor today and you were told when you did this 2 days ago that this is not allowed and you need to stay on the third floor. there is a lot of drama with your family. I fear that you are heading for a relapse.......please get some help.....your are depressed and in trouble. If you have a problem with heroin or other narcotics again we do have a program called [facility] at the hospital to get you help. You would need to voluntarily come to the [facility] office and ask for help. Pending Tests on Discharge: final wound culture......looks like Strep Allergies/Adverse Reactions: Allergies No Known Allergies Allergy (Verified 06/29/13 11:32) Medications to take at Discharge Gabapentin [Neurontin] 100 mg PO TID 10/18/17 Lamotrigine [Lamictal] 50 mg PO QHS 10/18/17 Meloxicam [Mobic] 15 mg PO DAILY 10/18/17 Sertraline HCl [Zoloft] 100 mg PO QHS 10/18/17 Cefadroxil [Duricef] 1,000 mg PO BID #12 cap 10/21/17 Hydrocodone Bitart/Apap 5-325 [[place] 5/325] 1 - 2 tab PO Q4H PRN PRN 7 Days #30 tab 10/21/17 Lactobacillus Acidophilus [Acidophilus] 1 tab PO BID #20 tab 10/21/17 The following prescriptions were given: Hydrocodone Bitart/Apap 5-325 [[place] 5/325] 1 - 2 tab PO Q4H PRN PRN 7 Days #30 tab PRN Reason: Severe Pain (6-03/23) Cefadroxil [Duricef] 1,000 mg PO BID #12 cap Lactobacillus Acidophilus [Acidophilus] 1 tab PO BID #20 tab Primary Care Physician: Care Physician,No Primary [Primary Care Provider] - Please follow up with your Primary Care Physician in: find one and follow up for chronic medical issues. Please Follow Up With: wound care center at [facility] When: set up by the [employer] planner Proposed Discharge Date: 10/21/17
--- NOTE | 2017-10-21 13:06 | NURSING ---
@ approx 1150, pt left unit with friend, daughter came back in smelling of smoke-pt had been cautioned about not leaving unit Wednesday PM and was instructed she would be dc'd if she left unit again-
--- NOTE | 2017-10-21 13:22 | DCINST_ITS ---
- Discharge Diagnoses Current Active Problems: Current Active and Chronic Problems Diabetes mellitus with skin ulcer (Acute) nonhealing infected diabetic ulcer abscess dorsal radial aspect mid right forearm Abscess of right forearm (Acute) nonhealing infected diabetic ulcer abscess dorsal radial aspect mid right forearm Cellulitis of right forearm (Acute) dorsal radial aspect mid right forearm Cellulitis (Acute) Nicotine abuse (Chronic) Diabetes (Chronic) Arthritis (Chronic) RLS (restless legs syndrome) (Chronic) Depression (Chronic) You will use the following diet at home:: Calorie/Carbohydrate Controlled ( specify 1200, 1400, etc) - carb controlled Your food should be the consistency of: Regular Your liquids should be the consistency of: Regular/Thin Discharge Activity: May not drive while taking narcotic pain medications., - - do not immerse the wound/wound vac in water Call your doctor if you observe: Fever of 101 or Higher, Inability to have a bowel movement, - - rash, diarrhea, fever/chills Additional Instructions: You will follow up in the wound care center until the wound is healed. I have give you a prescription for an antibitoic called duricef, similar to the Ancef you have been on, and you will take this twice a day until gone. I have given you a precription for Vicodin which should last a week and at that time you can start Tylenol as needed for pain. I think you need psychiatric help [place], You are emotionally labile and not following instructions. you removed the wound dressing yesterday and there was a dirty napkin in the dressing when it was replaced....you are contaminating the wound. You went off the floor today and you were told when you did this 2 days ago that this is not allowed and you need to stay on the third floor. there is a lot of drama with your family. I fear that you are heading for a relapse.......please get some help.....your are depressed and in trouble. If you have a problem with heroin or other narcotics again we do have a program called [facility] at the hospital to get you help. You would need to voluntarily come to the [facility] office and ask for help. Pending Tests on Discharge: final wound culture......looks like Strep Allergies/Adverse Reactions: Allergies No Known Allergies Allergy (Verified 06/29/13 11:32) Medications to take at Discharge Gabapentin [Neurontin] 100 mg PO TID 10/18/17 Lamotrigine [Lamictal] 50 mg PO QHS 10/18/17 Meloxicam [Mobic] 15 mg PO DAILY 10/18/17 Sertraline HCl [Zoloft] 100 mg PO QHS 10/18/17 Cefadroxil [Duricef] 1,000 mg PO BID #12 cap 10/21/17 Hydrocodone Bitart/Apap 5-325 [[place] 5/325] 1 - 2 tab PO Q4H PRN PRN 7 Days #30 tab 10/21/17 Lactobacillus Acidophilus [Acidophilus] 1 tab PO BID #20 tab 10/21/17 The following prescriptions were given: Hydrocodone Bitart/Apap 5-325 [[place] 5/325] 1 - 2 tab PO Q4H PRN PRN 7 Days #30 tab PRN Reason: Severe Pain (6-03/23) Cefadroxil [Duricef] 1,000 mg PO BID #12 cap Lactobacillus Acidophilus [Acidophilus] 1 tab PO BID #20 tab Primary Care Physician: Care Physician,No Primary [Primary Care Provider] - Please follow up with your Primary Care Physician in: find one and follow up for chronic medical issues. Please Follow Up With: wound care center at [facility] When: set up by the [employer] conference planner Proposed Discharge Date: 10/21/17
--- NOTE | 2017-10-21 13:24 | PCM.DC.SUM ---
Discharge Date and Diagnosis Date of Admission: 10/18/17 Date of Discharge: 10/21/17 - Primary Discharge Diagnosis Active and Suspected Problems Cellulitis and Abscess of right forearm (Acute) Nonhealing infected diabetic ulcer/abscess dorsal radial aspect mid right forearm non-compliance with directives by nursing to not touch the wound and to not leave the floor with her IV pump while receiving IV narcotics. - Secondary Discharge Diagnosis Chronic Problems Smoker (Chronic) Diabetes Mellitus Type II(Chronic) Osteoarthritis (Chronic) RLS (restless legs syndrome) (Chronic) Depression (Chronic) Hx of heroin addiction - recovering Hospital Course and Treatment Imaging Results: Clinical Impression(s) from Imaging Studies Upper Extremity CT 10/18/17 17:26 IMPRESSION: Open skin wound of the lateral distal forearm. There is associated subcutaneous fatty stranding and skin thickening consistent with cellulitis. There is no evidence of abscess or subcutaneous gas. Muscular soft tissue fascial planes are preserved. The underlying osseous structures appear normal. Electronically Signed: Melvin Rivera MD at 20:47 EDT , Service support , Microbiology 10/20/17 09:30 Tissue - Arm Right Gram Stain - Final 10/20/17 09:30 Tissue - Arm Right Wound Culture - Final No growth aerobically. 10/20/17 09:30 Tissue - Arm Right Anaerobic Culture - Final No growth in 5 days. 10/19/17 10:26 Blood Culture (Wb) - Left Hand Blood Culture - Final No growth in 5 days. 10/19/17 09:05 Blood Culture (Wb) - Left Hand Blood Culture - Final No growth in 5 days. 10/19/17 11:55 Abs - Right Forearm Gram Stain - Final 10/19/17 11:55 Abs - Right Forearm Wound Culture - Final Streptococcus group A Consultations 10/18/17 17:27 Consult: Onc/Wound/patient services coordinator Routine Comment: Operations: None Procedures: - - Incision and drainage with excisional debridement including infected thrombosed cephalic vein and underlying extensor tendon sheath of nonhealing infected diabetic ulcer/abscess of the dorsal radial aspect of the mid right forearm on 10/20/[address] Ray. Summary of Care Provided: The patient is a 52-year-old female with a past medical history of restless leg syndrome, depression, diet-controlled diabetes mellitus type 2, tobacco dependence, recovering heroin addiction and osteoarthritis who was sent to the [facility] emergency department on 10/18/2017 from [facility] with complaints of pain, swelling and foul-smelling purulent discharge from a wound on her right upper extremity. She had previously been seen at [facility] on 10/16/2017 and was prescribed clindamycin. she told this physician that her dtr, who is in nursing school, had been practising IV's at theat site about 1 week prior to the development of redness, pain and DC. Vital signs at arrival to the emergency room were temperature 97.8, pulse rate 79, blood pressure 126/78, respiratory rate 18 and she was 98% saturated on room air. White blood cell count was 4.1 with 6.4% eosinophils and 39% neutrophils. Hemoglobin and platelets were normal. BMP was unremarkable. PCR on the drainage was negative for MRSA and negative for staph aureus. Wound culture was done at [facility] and repeated at [facility]. CT scan of the right upper extremity showed no evidence of abscess or subcutaneous gas. Muscular soft tissue fascial planes were preserved and the underlying osseous structures appeared normal. There was evidence of cellulitis. She was admitted to the hospital and started on Vancomycin until the PCR was available and negative for Staph and at that time the antibiotic was changed to Ancef. She was seen in consultation by Dr. Ray and taken to surgery on 10/20/17 for I&D. A heavy dressing was applied at the conclusion of the surgery. Despite advice by her nurse to not touch the dressing she undressed the wound and when the dressing was revised by the wound care nurse a dirty napkin was found next to the wound. She had left the floor earlier in the admission with her IV pole while receiving IV Morphine to go outside to smoke. Despite being told she was not able to leave the floor she once again left the floor with her IV pole on 10/21/17 to go smoke. She had been provided with a nicotine patch at admission. She was emotionally very labile in the hospital and non-compliant. A wound vac was placed on 10/21/17 and she was discharged home with [facility]. The wound culture was positive for group A strep. At the time of discharge she was given a prescription for Duricef 1000 mg p.o. twice daily for 6 more days. She was also given a prescription for probiotic to take twice daily. She was provided with a prescription for Vicodin, #30 tablets, and instructed to take 1-2 tablets every 4 hours as needed for pain. She is going to follow-up in the wound care center and an appointment was set up by the c4 planner. This note was generated with [employer] dictation software. It may contain incorrect words, spelling, and punctuation that were not noted in checking the note before signing. Discharge Activity: May not drive while taking narcotic pain medications., - - do not immerse the wound/wound vac in water Call your doctor if you observe: Fever of 101 or Higher, Inability to have a bowel movement, - - rash, diarrhea, fever/chills Home Medications: Medications to take at Discharge Gabapentin [Neurontin] 100 mg PO TID 10/18/17 Lamotrigine [Lamictal] 50 mg PO QHS 10/18/17 Meloxicam [Mobic] 15 mg PO DAILY 10/18/17 Sertraline HCl [Zoloft] 100 mg PO QHS 10/18/17 Cefadroxil [Duricef] 1,000 mg PO BID #12 cap 10/21/17 Hydrocodone Bitart/Apap 5-325 [[place] 5/325] 1 - 2 tab PO Q4H PRN PRN 7 Days #30 tab 10/21/17 Lactobacillus Acidophilus [Acidophilus] 1 tab PO BID #20 tab 10/21/17 Following Prescrptions Were Given to Patient: Hydrocodone Bitart/Apap 5-325 [[place] 5/325] 1 - 2 tab PO Q4H PRN PRN 7 Days #30 tab PRN Reason: Severe Pain (-03/23) Cefadroxil [Duricef] 1,000 mg PO BID #12 cap Lactobacillus Acidophilus [Acidophilus] 1 tab PO BID #20 tab Primary Care Physician: Care Physician,No Primary [Primary Care Provider] - Please follow up with your Primary Care Physician in: find one and follow up for chronic medical issues. Please Follow Up With: wound care center at [facility] When: set up by the DC environmental planner Disposition: Home with Home Health Minutes spent on discharge:: 35 Patient Condition:: Stable Medical Necessity - Tobacco Use Smoking Status: Current every day smoker Tobacco Use: Cigarettes Meaningful Use Info Meaningful Use Diagnoses (Choose all that apply): None applicable Code Visit Inpatient E&M: 82728 Disch Hosp
--- NOTE | 2017-10-21 13:55 | NURSING ---
behavioural health here to speak with pt
--- NOTE | 2017-10-21 13:57 | BH.NOTE ---
: Inpatient Note - Notes Behavioral Health Inpatient Note: 10/21/17 13:57 Referral to [facility] due to depression and anxiety. Met with pt in her room. Pt tearful throughout the assessment. Denies suicidal ideations, plan, or intent. No hx of attempts. Pt reports stable mood prior to struggles with her wound on her arm. Fearful that wound will not heal properly and pre-occupied with the pain. Hx of heroin abuse which started out as addiction to pain pills. Reports sobriety for 5 years after treatment at residential substance abuse facility. Remorseful regarding her actions while on medical floor as she left the unit w/o telling staff to smoke a cigarette. Apologizing for her behaviors. According to patient she has a strong support network consisting of her daughter, anabaptist, and NA meetings. She is also linked with [facility] for counseling and psychiatry. We had discussion regarding the importance of managing emotions while dealing with significant medical issues. Also discussed the importance of keeping up with her substance abuse counseling and support. She would like to stay with [facility] for treatment. Was given information on [facility] program if symptoms worsen. Discussed case with social work and pt's RN.
[2017-10-21] MEDS: Cefadroxil 500 MG CAPSULE 1000 MG PO (14:32)
--- NOTE | 2017-10-21 15:00 | CASEMGMT ---
SURENDRA SEXTON received update that patient is now going to discharge to mother's house in [place]. [facility] [place] [facility] and requested to update [place] office. SURENDRA SEXTON updated [place] office and requested referral be sent. SURENDRA SEXTON sent referral to [place] office. SURENDRA SEXTON updated patient regarding HHC change. SURENDRA SEXTON will continue to follow this patient and will follow up in morning to confirm HHC setup with [facility] office.
--- NOTE | 2017-10-21 17:09 | CASEMGMT ---
Social Work Note SURENDRA Mccormack informed this worker that pt's daughter is in room with pt and that pt is now agreeable to placement. SW in to speak with pt with SURENDRA Mccormack and pt's daughter to discuss discharge planning. Pt's daughter states that she would like pt to go to a SNF for wound care at discharge. Pt's daughter states that she doesn't feel safe about her mom going home. SW informed pt that it is her choice whether she would like to go to SNF placement. Pt agreed to SNF placement but had tears in her eyes while doing so. SW informed pt that this worker can print off a list of nursing homes that accept her insurance but that this worker is unsure if her insurance will cover placement. Pt states understanding. SW back in to see pt and provided a list of nursing homes in network with her insurance. SW informed pt again that this worker is unsure if her insurance will cover her placement as she may not meet criteria for placement. Pt states understanding and is willing to try [facility]. NITHIN updated SURENDRA Mccormack and Dr. Mae. Dr. Mae states that pt doesn't meet criteria for SNF placement. It should be noted that Dr. Mae had completed discharge orders and instructions on pt earlier in the day. NITHIN and SURENDRA Olivera updated SURENDRA Mccormack that Dr. Mae states that pt will not meet criteria for SNF placement and that pt will be discharged. NITHIN placed a call to Social Flight Technician Yani HERRERA and Aleisha HERRERA to get input. Per Andrés pt's insurance will not cover for pt to go to SNF as pt doesn't meet criteria and that since pt is alert and orientated she is capable to make her own decisions. It should be noted that this worker had a conversation with pt yesterday and pt wanted to go home with Home Health Care and denied SNF placement. SURENDRA Olivera and this worker in to speak with pt again to clarify discharge planning. SURENDRA Olivera and this worker explained to pt that she and this worker and Dr. Mae all think that pt is capable to go home and be successful and provide the care that she needs to herself. SURENDRA Galan and this worker explained to pt that she doesn't meet criteria for SNF placement and that her insurance will not approve for her to go. Pt states understanding. Pt states that she will be going to her mom's home instead of her daughter's home. Lorenzo, from [facility] was in to see pt earlier and Lorenzo states that pt is linked with [facility] in [place] and he provided pt with additional resources. Plan: Discharge to pt's mom house with [facility] Annmarie Chapman MACHINE CAPTAIN, BOILERMAKER
--- NOTE | 2017-10-21 17:10 | PCA ---
Called to schedule this patient an appointment for the wound center for 2 weeks. The wound center fitness worker told me that doctor suzie wasnt in at the date she needed so they were going to talk to him in person and call me back with the date he wanted to see her other than the of this month. I tried to call the wound center 2 times before patient left the building and no call back nor answer so left a message on the answering machine with the patient number and to call her with an anointment.
== END 2017-10-21 15:35 | disposition home health service (06) | DRG 287 ==
PROVIDERS: Anesthesiology; Physician Assistant; Surgery; Visit Provider Internal Medicine
PROC: 0JBG0ZZ Excision of Right Lower Arm Subcutaneous Tissue and Fascia, Open Approach (ICD-10-PCS; principal; 2017-10-20 08:20)
DX: E11.628 Type 2 diabetes mellitus with other skin complications (principal); L02.413 Cutaneous abscess of right upper limb; L03.113 Cellulitis of right upper limb; F11.20 Opioid dependence, uncomplicated; E11.622 Type 2 diabetes mellitus with other skin ulcer; L98.499 Non-pressure chronic ulcer of skin of other sites with unspecified severity; F17.210 Nicotine dependence, cigarettes, uncomplicated; F32.9 Major depressive disorder, single episode, unspecified; G25.81 Restless legs syndrome; M19.90 Unspecified osteoarthritis, unspecified site; I82.611 Acute embolism and thrombosis of superficial veins of right upper extremity; Z91.19 Patient's noncompliance with other medical treatment and regimen
CPT/HCPCS: 36415; 73200; 80048; 82962; 83036; 84134; 85025; 85027; 87040; 87070; 87075; 87077; 87102; 87205; 87206; 87640; 88304; 93005; J7030; J7040; J7050; A4216; J2405

== ENCOUNTER 2017-11-19 22:47 | Inpatient (IN) | payer MEDICAID, SELFPAY ==
--- NOTE | 2017-11-19 22:07 | RAD_ITS ---
STUDY: X-RAY - RIGHT RADIUS AND ULNA REASON FOR EXAM: Female, 52 years old. Wound infection, fever TECHNIQUE: 2 view(s) of the forearm. COMPARISON: None. FINDINGS: There is no demonstrated soft tissue swelling. Wound VAC over the distal forearm. Normal visualized radius. Normal visualized ulna. There is no demonstrated acute fracture. RAD/Forearm 2 Views IMPRESSION: No fracture. No cortical erosion. Wound VAC in place. Electronically Signed: Devyn Hairston DO at 22:24 EDT , Service support ,
--- NOTE | 2017-11-19 23:00 | DT_ITS ---
This patient was seen during an EMR downtime November 15, 2017 - November 22, 2017. This patient may have a combination of paper and electronic documentation or all paper documentation. All documentation is viewable within the e-chart portion of [facility] for each patient visit.
[2017-11-20 11:26] LABS: Erythrocyte Sedimentation Rate 16 mm/hr (0-30)
--- NOTE | 2017-11-20 12:20 | CT_ITS ---
STUDY: CT RIGHT FOREARM WITHOUT CONTRAST REASON FOR EXAM: Female, 52 years old. Nonhealing wound. RADIATION DOSAGE (If Supplied By Facility): CTDIvol = ( 24.58 ) mGy, DLP = ( 812.59 ) mGycm TECHNIQUE: Transaxial CT imaging of the right forearm was performed. Sagittal and coronal images were reconstructed. Individualized dose optimization techniques were used for this CT. COMPARISON: X-ray June 21, 2017. CT October 18, 2017.. FINDINGS: There is soft tissue swelling with focal 3.9 cm defect and wound on the radial aspect of the mid forearm. There is edema of the extensor musculature and at the musculotendinous junctions. Normal visualized radius and ulna. There is no fracture or periosteal reaction. CT/Extremity Upper without Contra IMPRESSION: Soft tissue wound. No destruction or periosteal reaction to suggest osteomyelitis. There is edema of the extensor muscles extending to the musculotendinous junction. Electronically Signed: Scar Sánchez MD at 14:57 EDT , Service support ,
[2017-11-20 14:13] LABS: M R Staph aureus DNA By PCR Negative (Negative); Probe Check PASS; Specimen Processing Control PASS; Staph aureus DNA By PCR NEGATIVE (Negative)
[2017-11-22] MEDS: oxyCODONE 5 MG Tablet PO ×3 (00:05→08:40)
[2017-11-22] MEDS: Enoxaparin 40 MG/0.4 ML Syringe SC (06:00)
[2017-11-22] MEDS: Piperacil/Tazobactam 3.375 GM Q8 PREMIX IV (06:00)
[2017-11-22] MEDS: Ibuprofen 600 MG Tablet PO (06:00)
[2017-11-22] MEDS: Sucralfate 1 GM Tablet PO ×2 (07:00→11:00)
[2017-11-22] MEDS: Gabapentin 300 MG Capsule PO (08:00)
[2017-11-22 09:02] LABS: Hematocrit 36.6 % (37-47); Mean Corp Hgb Conc 32.8 g/gl (32-36); Mean Corpuscular Hgb 31.5 pg (27.0-32.0); Mean Corpuscular Volume 96.1 fL (81-99); Mean Platelet Vol. 10.9 fl (6.2-12.0); Platelet Count 190 K/mm3 (150-450); RBC Distribution Width SD 45.4 fl (35.1-43.9); Red Blood Count 3.81 M/mm3 (4.2-5.4); White Blood Count 5.8 K/mm3 (4.4-11.0)
[2017-11-22 09:04] LABS: Scan Indicated on CBC? Y/N NO
--- NOTE | 2017-11-22 10:30 | CASEMGMT ---
Addendum entered by Annmarie Chapman 11/22/17 13:44: Continuation of note* SURENDRA Wright went in to speak with pt regarding discharge plans. See SURENDRA Wright note for discharge planning. Original Note: Social Work Note SURENDRA Espinosa informed this worker that pt wishes to speak to case management. SURENDRA ESXTON was in to speak with pt
--- NOTE | 2017-11-22 11:35 | CASEMGMT ---
SURENDRA SEXTON in to discuss discharge plans with patient. Patient wishes to discharge home with resumption of HHC through [facility]. Patient lives with daughter who is willing to assist with dressing changes. Resumption order for HHC and discharge instructions faxed to [facility]. SURENDRA SEXTON will continue to follow this patient and plan for a safe discharge.
[2017-11-23 02:16] LABS: Lactic Acid 0.9 mmol/L (0.4-2.0)
[2017-11-23 02:18] LABS: Anion Gap 7 (5-15); BUN 9 mg/dL (7-18); BUN/Creat Ratio 9.7 RATIO (10-20); Calcium,Total 9.2 mg/dL (8.5-10.1); Chloride 103 mmol/L (98-107); Creatinine, Serum 0.93 mg/dL (0.55-1.02); EST Glomerular Filtration Rate 67 mL/min (>60); Est Glom Filt Rate - Afr Amer 81 mL/min (>60); Glucose 101 mg/dL (74-106); Potassium 3.5 mmol/L (3.5-5.1); Sodium Level 136 mmol/L (136-145)
[2017-11-23 04:48] LABS: Hematocrit 44.1 % (37-47); Hemoglobin 15.2 g/dl (12.0-15.0); Mean Corp Hgb Conc 34.5 g/gl (32-36); Mean Corpuscular Hgb 32.5 pg (27.0-32.0); Mean Corpuscular Volume 94.4 fL (81-99); Mean Platelet Vol. 11.3 fl (6.2-12.0); POSITIVE COUNT NO; POSITIVE DIFFERENTIAL YES; POSITIVE MORPHOLOGY NO; Platelet Count 175 K/mm3 (150-450); RBC Distribution Width CV 12.7 % (11.6-14.6); Red Blood Count 4.67 M/mm3 (4.2-5.4); White Blood Count 17.4 K/mm3 (4.4-11.0)
[2017-11-23 04:49] LABS: Absolute Neutrophil Count 12.6 X10^3/uL (2.0-7.7); Basophil# 0.02 X10^3/uL; Basophil% 0.1 % (0-1); Differential Indicated SCAN CRITERIA MET; Eosinophil# 0.17 X10^3/uL; Lymphocyte % 17.2 % (19-41); Monocyte# 1.54 X10^3/uL; Monocyte% 8.8 % (0-10); Neutrophil # 12.63 X10^3/uL (2.7-7.7); Neutrophil % 72.6 % (47-70)
--- NOTE | 2017-11-23 06:12 | DS.PCM_ITS ---
Discharge Date and Diagnosis Date of Admission: 10/18/17 Date of Discharge: 11/22/17 - Secondary Discharge Diagnosis Chronic Problems Smoker (Chronic) Diabetes (Chronic) Arthritis (Chronic) RLS (restless legs syndrome) (Chronic) Depression (Chronic) Hospital Course and Treatment Summary of Care Provided: The patient is a 52 year old F [] Home Medications: Medications to take at Discharge Gabapentin [Neurontin] 100 mg PO TID 10/18/17 Lamotrigine [Lamictal] 50 mg PO QHS 10/18/17 Meloxicam [Mobic] 15 mg PO DAILY 10/18/17 Sertraline HCl [Zoloft] 100 mg PO QHS 10/18/17 Cefadroxil [Duricef] 1,000 mg PO BID #12 cap 10/21/17 Hydrocodone Bitart/Apap 5-325 [[place] 5/325] 1 - 2 tab PO Q4H PRN PRN 7 Days #30 tab 10/21/17 Lactobacillus Acidophilus [Acidophilus] 1 tab PO BID #20 tab 10/21/17 gabapentin 300 mg capsule See Label Instructions PO 4X/DAY #240 cap 11/11/17 Primary Care Physician: Lauri Ray MD [Primary Care Provider] - Medical Necessity - Tobacco Use Smoking Status: Current every day smoker
[2017-11-23 09:48] LABS: ALB/GLOB Ratio 0.8 RATIO (0.9-2.4); AST(SGOT) 59 U/L (15-37); Alanine Aminotransfer ALT/SGPT 137 U/L (13-56); Albumin, Serum 2.9 g/dL (3.2-5.0); Alkaline Phosphatase 209 U/L (45-117); Anion Gap 7 (5-15); BUN 7 mg/dL (7-18); BUN/Creat Ratio 9.1 RATIO (10-20); Calcium,Total 8.5 mg/dL (8.5-10.1); Chloride 109 mmol/L (98-107); Creatinine, Serum 0.77 mg/dL (0.55-1.02); EST Glomerular Filtration Rate 84 mL/min (>60); Est Glom Filt Rate - Afr Amer 102 mL/min (>60); Globulin 3.8 g/dL (2.2-4.2); Glucose 105 mg/dL (74-106); Magnesium 1.9 mg/dL (1.6-2.6); Phosphorus 2.2 mg/dL (2.5-4.9); Potassium 3.6 mmol/L (3.5-5.1); Protein, Total 6.7 g/dL (6.4-8.2); Sodium Level 140 mmol/L (136-145)
[2017-11-23 17:40] LABS: Absolute Neutrophil Count 8.8 X10^3/uL (2.0-7.7); Basophil% 0.2 % (0-1); Eosinophils% 1.8 % (0-5); Hematocrit 38.6 % (37-47); Lymphocyte # 2.31 X10^3/ul (4.0); Lymphocyte % 18.5 % (19-41); Mean Corp Hgb Conc 33.7 g/gl (32-36); Mean Corpuscular Hgb 31.9 pg (27.0-32.0); Mean Corpuscular Volume 94.8 fL (81-99); Mean Platelet Vol. 11.4 fl (6.2-12.0); Monocyte% 8.7 % (0-10); Neutrophil # 8.82 X10^3/uL (2.7-7.7); Neutrophil % 70.6 % (47-70); POSITIVE COUNT NO; POSITIVE DIFFERENTIAL NO; POSITIVE MORPHOLOGY NO; Platelet Count 173 K/mm3 (150-450); RBC Distribution Width SD 45.1 fl (35.1-43.9); Red Blood Count 4.07 M/mm3 (4.2-5.4); White Blood Count 12.5 K/mm3 (4.4-11.0)
[2017-11-23 17:41] LABS: Absolute Lymphocyte Count 2.31 X10^3/ul (0.83-4.51); Basophil# 0.02 X10^3/uL; Eosinophil# 0.22 X10^3/uL; Monocyte# 1.09 X10^3/uL
[2017-11-24 13:51] LABS: Pathologist Review Reviewed
[2017-11-25 15:20] LABS: Bedside Glucose 128 mg/dL (70-110)
[2017-11-26 15:04] LABS: Bedside Glucose 105 mg/dL (70-110)
[2017-11-26 15:05] LABS: Bedside Glucose 99 mg/dL (70-110)
[2017-11-26 15:07] LABS: Bedside Glucose 91 mg/dL (70-110)
[2017-11-26 15:10] LABS: Bedside Glucose 142 mg/dL (70-110)
[2017-11-26 15:35] LABS: Bedside Glucose 100 mg/dL (70-110)
[2017-11-26 15:42] LABS: Bedside Glucose 115 mg/dL (70-110)
[2017-11-26 15:45] LABS: Bedside Glucose 195 mg/dL (70-110)
[2017-11-26 15:47] LABS: Bedside Glucose 103 mg/dL (70-110)
== END 2017-11-22 11:39 | disposition home health service (06) | DRG 278 ==
LOC: ED 11-20 08:06 → MS3 11-20 08:08
PROVIDERS: Internal Medicine; Admitting Provider Family Medicine; Emergency Provider Emergency Medicine; PCP Surgery; Visit Provider Internal Medicine
DX: L03.113 Cellulitis of right upper limb (principal); L98.499 Non-pressure chronic ulcer of skin of other sites with unspecified severity; E11.40 Type 2 diabetes mellitus with diabetic neuropathy, unspecified; M77.9 Enthesopathy, unspecified; G25.81 Restless legs syndrome; M19.90 Unspecified osteoarthritis, unspecified site; F11.11 Opioid abuse, in remission; F32.9 Major depressive disorder, single episode, unspecified; F41.9 Anxiety disorder, unspecified; Z72.0 Tobacco use; Z91.19 Patient's noncompliance with other medical treatment and regimen; Z79.82 Long term (current) use of aspirin; Z79.899 Other long term (current) drug therapy
CPT/HCPCS: 36415; 73090; 73200; 80048; 80053; 82962; 83605; 83735; 84100; 85025; 85027; 85652; 86140; 87040; 87070; 87075; 87077; 87186; 87205; 87640; 96361; 96365; 96367; 96375; 97161; 97166; 97802; 99284; J7030; A4216; J2405

== ENCOUNTER → 2017-11-25 16:12 | Outpatient (CLI) | payer MEDICAID, SELFPAY ==
[2017-11-25 16:33] LABS: Anion Gap 8 (5-15); BUN 7 mg/dL (7-18); BUN/Creat Ratio 7.6 RATIO (10-20); Chloride 108 mmol/L (98-107); Creatinine, Serum 0.92 mg/dL (0.55-1.02); EST Glomerular Filtration Rate 68 mL/min (>60); Est Glom Filt Rate - Afr Amer 82 mL/min (>60); Glucose 84 mg/dL (74-106); Potassium 3.1 mmol/L (3.5-5.1); Sodium Level 142 mmol/L (136-145)
[2017-11-25 16:37] LABS: Hematocrit 39.5 % (37-47); Hemoglobin 13.7 g/dl (12.0-15.0); Mean Corp Hgb Conc 34.7 g/gl (32-36); Mean Corpuscular Hgb 32.5 pg (27.0-32.0); Mean Corpuscular Volume 93.8 fL (81-99); Mean Platelet Vol. 11.1 fl (6.2-12.0); Platelet Count 264 K/mm3 (150-450); RBC Distribution Width CV 12.5 % (11.6-14.6); RBC Distribution Width SD 42.1 fl (35.1-43.9); Red Blood Count 4.21 M/mm3 (4.2-5.4); White Blood Count 7.5 K/mm3 (4.4-11.0)
[2017-11-25 17:06] LABS: Basophil 2 % (0-1); Eosinophil 3 % (0-5); Lymphocyte 32 % (19-41); Monocyte 13 % (0-10); Neutrophil-Band 1 % (0-5); Neutrophil-Segmented 49 % (47-70); Total Cells Counted 100 (MANUAL DIFF)
[2017-11-25 17:07] LABS: Differential Indicated MANUAL DIFF; POSITIVE COUNT YES; POSITIVE DIFFERENTIAL NO; POSITIVE MORPHOLOGY YES
[2017-11-25 17:09] LABS: Absolute Lymphocyte Count 2.39 X10^3/ul (0.83-4.51); Absolute Neutrophil Count 3.7 X10^3/uL (2.0-7.7)
[2017-11-26 10:03] LABS: Pathologist Review Reviewed
== END ==
PROVIDERS: Visit Provider Surgery
DX: L03.113 Cellulitis of right upper limb (principal); L98.499 Non-pressure chronic ulcer of skin of other sites with unspecified severity
CPT/HCPCS: 80048; 85025

== ENCOUNTER 2017-12-02 08:25 | Outpatient (RCR) | payer MEDICAID, SELFPAY ==
[2017-12-02 08:31] VITALS: BP 135/96; PULSE 88; RESP 16; TEMP 37; BMI 26.3
--- NOTE | 2017-12-02 09:23 | PCM.WC.HP ---
(1) Open wound of right forearm with complication Status: Acute Current Visit: Yes Code(s): S51.801A - Unspecified open wound of right forearm, initial encounter (2) Diabetes Status: Chronic Current Visit: Yes Code(s): E11.9 - Type 2 diabetes mellitus without complications (3) Smoker Status: Chronic Current Visit: Yes Code(s): F17.200 - Nicotine dependence, unspecified, uncomplicated History of Present Illness Date of Service: 12/02/17 Chief Complaint: Right Forearm Wound History of Wound: Ms. Gage is a 52yo who presents to the wound center for management of her right forearm wound. She has had an eventful last couple of weeks. Injury was assumed to have been possibly from a spider bite however, she subsequently had secondary infection/cellulitis. She was was admitted at the [facility] and had surgical debridement and then a wound vac placement. She has done well since then and has been dressing with aquacel daily. She denies any discharge from the wound site and also denies chills, fever, nausea, vomitting or otherwise feeling of unwell. Past Medical History Past Medical History: Chronic Problems Smoker (Chronic) Diabetes (Chronic) Arthritis (Chronic) RLS (restless legs syndrome) (Chronic) Depression (Chronic) Surgical History: - - . Allergies/Adverse Reactions: Allergies No Known Allergies Allergy (Verified 12/02/17 08:41) Home Medications: Ambulatory Orders Medication Instructions Recorded Gabapentin [Neurontin] 100 mg PO TID 10/18/17 Lamotrigine [Lamictal] 50 mg PO QHS 10/18/17 Meloxicam [Mobic] 15 mg PO DAILY 10/18/17 Sertraline HCl [Zoloft] 100 mg PO QHS 10/18/17 Cefadroxil [Duricef] 1,000 mg PO BID #12 cap 10/21/17 Lactobacillus Acidophilus 1 tab PO BID #20 tab 10/21/17 [Acidophilus] gabapentin 300 mg capsule See Label Instructions PO 4X/DAY 11/11/17 #240 cap - Family History Maternal Diabetes Paternal Cancer Smoking Status: Current every day smoker Review of Systems Constitutional: Denies: Anorexia, Chills, Fever Eyes: Denies: Pain, Redness HEENT: Denies: Difficulty Hearing, Difficulty Swallowing Cardiovascular: Denies: Chest Pain, Chest Tightness Respiratory: Denies: Cough, Hemoptysis - Physical Exam Vital Signs Temp Pulse Resp BP 98.6 F 88 16 135/96 H 12/02/17 08:31 12/02/17 08:31 12/02/17 08:31 12/02/17 08:31 General: Alert, Oriented x3, Cooperative, No apparent distress HEENT: Atraumatic Oral: Moist Mucosa Neck: Supple Lungs: Normal air movement Cardiovascular: Regular rate Abdomen: Non Tender Extremities: No cyanosis Skin: Ulcer/ Wound Wound Measurements and Assessment WC - Nurse 1 - General Ulcer Measurement Start: 12/02/17 08:28 Freq: Status: Active Protocol: Activity Type Activity Date Activity User E-Sign Co-Sign Detail Recorded Client Recorded Date Recorded By Document 12/02/17 08:31 DL [id number] 12/02/17 08:37 DL 12/02/17 08:31 Wound Center Nurse 1 [Ulcer Assessment] #1 R forearm -Current Size (cm) - Length 1.9 -Current Size (cm) - Width 1.8 -Current Size (cm) - Depth 0.1 -Total Square Cm 3.42 -Photo Taken Yes -Exudate Amt Small (1-33%) -Exudate Type Serosanguineous -Wound Margin Distinct, Outline Attached -Granulation Amt Large (67-100%) -Granulation Quality Red -Necrosis Amt Small (1-33%) -Necrotic Tissue Type Adherent Slough -Structure Exposed N/A -Texture (Maryuri-wound Skin Appearance) No Abnormality -Moisture (Maryuri-wound Skin Appearance No Abnormality ) -Color (Maryuri-wound Skin Appearance) No Abnormality -Temperature (Maryuri-wound Skin No Abnormality Appearance) (Pt Warm) -Ulcer Cleansing Rinsed/ Irrigated with Saline -Foul Odor after Cleansing No -Anesthetic Used 4% Lidocaine Solution WC - Nurse 2 - General Ulcer CM Notes Start: 12/02/17 08:28 Freq: Status: Active Protocol: Activity Type Activity Date Activity User E-Sign Co-Sign Detail Recorded Client Recorded Date Recorded By Document 12/02/17 09:09 DV [id number] 12/02/17 09:17 DV 12/02/17 09:09 Wound Center Nurse 2 [Procedure/Treatment] -Time 09:10 -Correct Patient Yes -Correct Side, Site, Position Yes -Correct Procedure Yes -Procedure Performed Yes -Type of Procedure Debridement -Clinical Debridement Subcutaneous -Post Debridement Size (cm) - Length 2.2 -Post Debridement Size (cm) - Width 2.2 -Post Debridement Size (cm) - Depth 0.1 -Total Square Cm 4.84 -Wound/Ulcer Outcome Not Healed -Ulcer Cleansing Rinsed/ Irrigated with Saline -Foul Odor after Cleansing No -Bioengineered Tissue No -Bleeding Controlled with Pressure -Treatment Response Procedure Tolerated Well [See Physician Procedure note for Specifics] Pain Scale: 0-10 Numeric [Pain] -Is Patient Pain Free? Yes Musculoskeletal: No Muscle Wasting Neurological: Cranial nerves II-XII grossly intact Psych/Mental Status: Normal Affect Debridement Note Post-Debridement Measurements/Treatment WC - Nurse 2 - General Ulcer CM Notes Start: 12/02/17 08:28 Freq: Status: Active Protocol: Activity Type Activity Date Activity User E-Sign Co-Sign Detail Recorded Client Recorded Date Recorded By Document 12/02/17 09:09 DV [id number] 12/02/17 09:17 DV 12/02/17 09:09 Wound Center Nurse 2 #1 R forearm -Time 09:10 -Correct Patient Yes -Correct Side, Site, Position Yes -Correct Procedure Yes -Procedure Performed Yes -Type of Procedure Debridement -Clinical Debridement Subcutaneous -Post Debridement Size (cm) - Length 2.2 -Post Debridement Size (cm) - Width 2.2 -Post Debridement Size (cm) - Depth 0.1 -Total Square Cm 4.84 -Wound/Ulcer Outcome Not Healed -Ulcer Cleansing Rinsed/ Irrigated with Saline -Foul Odor after Cleansing No -Bioengineered Tissue No -Bleeding Controlled with Pressure -Treatment Response Procedure Tolerated Well Pain Scale: 0-10 Numeric Is Patient Pain Free? Yes Wound debrided: Right Forerm Wound Grade/Stage: Stage II Type of Debridement: Excisional debridement Anesthesia Used: 4% Lidocaine Solution Depth: Down to and including healthy tissue, in the subcutaneous layer Percentage of wound debrided: 100 Instrument Used: 5mm curette Tissue Removed: Biofilm and devitalized tissue Severity: Fat Layer Exposed Amount of bleeding with debridement: Mild Bleeding Controlled with: Pressure Patient tolerated procedure well Assessment/Plan Active Problems Open wound of right forearm with complication (Acute) Smoker (Chronic) Diabetes (Chronic) Assessment: Right forearm wound s/p surgical debridment and wound vac. Type 2 Diabetes Mellitus, well controlled. Plan: Ms. Muhammad presents here for continued wound care. Wound appears to have done wll compared to prior images. No new complaints at this time. Debridement done as documented above, procedure was well tolerated. Apply pomogran daily with adpatic over top. Keep area protected. Optimal blood sugar control and smoking cessation encouraged. Follow up in 2 weeks.
--- NOTE | 2017-12-02 09:33 | HP.PCM_ITS ---
(1) Open wound of right forearm with complication Status: Acute Current Visit: Yes Code(s): S51.801A - Unspecified open wound of right forearm, initial encounter (2) Diabetes Status: Chronic Current Visit: Yes Code(s): E11.9 - Type 2 diabetes mellitus without complications (3) Smoker Status: Chronic Current Visit: Yes Code(s): F17.200 - Nicotine dependence, unspecified, uncomplicated History of Present Illness Date of Service: 12/02/17 Chief Complaint: Right Forearm Wound History of Wound: Ms. Gage is a 52yo who presents to the wound center for management of her right forearm wound. She has had an eventful last couple of weeks. Injury was assumed to have been possibly from a spider bite however, she subsequently had secondary infection/cellulitis. She was was admitted at the [facility] and had surgical debridement and then a wound vac placement. She has done well since then and has been dressing with aquacel daily. She denies any discharge from the wound site and also denies chills, fever, nausea, vomitting or otherwise feeling of unwell. Past Medical History Past Medical History: Chronic Problems Smoker (Chronic) Diabetes (Chronic) Arthritis (Chronic) RLS (restless legs syndrome) (Chronic) Depression (Chronic) Surgical History: - - . Allergies/Adverse Reactions: Allergies No Known Allergies Allergy (Verified 12/02/17 08:41) Home Medications: Ambulatory Orders Medication Instructions Recorded Gabapentin [Neurontin] 100 mg PO TID 10/18/17 Lamotrigine [Lamictal] 50 mg PO QHS 10/18/17 Meloxicam [Mobic] 15 mg PO DAILY 10/18/17 Sertraline HCl [Zoloft] 100 mg PO QHS 10/18/17 Cefadroxil [Duricef] 1,000 mg PO BID #12 cap 10/21/17 Lactobacillus Acidophilus 1 tab PO BID #20 tab 10/21/17 [Acidophilus] gabapentin 300 mg capsule See Label Instructions PO 4X/DAY 11/11/17 #240 cap - Family History Maternal Diabetes Paternal Cancer Smoking Status: Current every day smoker Review of Systems Constitutional: Denies: Anorexia, Chills, Fever Eyes: Denies: Pain, Redness HEENT: Denies: Difficulty Hearing, Difficulty Swallowing Cardiovascular: Denies: Chest Pain, Chest Tightness Respiratory: Denies: Cough, Hemoptysis - Physical Exam Vital Signs Temp Pulse Resp BP 98.6 F 88 16 135/96 H 12/02/17 08:31 12/02/17 08:31 12/02/17 08:31 12/02/17 08:31 General: Alert, Oriented x3, Cooperative, No apparent distress HEENT: Atraumatic Oral: Moist Mucosa Neck: Supple Lungs: Normal air movement Cardiovascular: Regular rate Abdomen: Non Tender Extremities: No cyanosis Skin: Ulcer/ Wound Wound Measurements and Assessment WC - Nurse 1 - General Ulcer Measurement Start: 12/02/17 08:28 Freq: Status: Active Protocol: Activity Type Activity Date Activity User E-Sign Co-Sign Detail Recorded Client Recorded Date Recorded By Document 12/02/17 08:31 DL [id number] 12/02/17 08:37 DL 12/02/17 08:31 Wound Center Nurse 1 [Ulcer Assessment] #1 R forearm -Current Size (cm) - Length 1.9 -Current Size (cm) - Width 1.8 -Current Size (cm) - Depth 0.1 -Total Square Cm 3.42 -Photo Taken Yes -Exudate Amt Small (1-33%) -Exudate Type Serosanguineous -Wound Margin Distinct, Outline Attached -Granulation Amt Large (67-100%) -Granulation Quality Red -Necrosis Amt Small (1-33%) -Necrotic Tissue Type Adherent Slough -Structure Exposed N/A -Texture (Maryuri-wound Skin Appearance) No Abnormality -Moisture (Maryuri-wound Skin Appearance No Abnormality ) -Color (Maryuri-wound Skin Appearance) No Abnormality -Temperature (Maryrui-wound Skin No Abnormality Appearance) (Pt Warm) -Ulcer Cleansing Rinsed/ Irrigated with Saline -Foul Odor after Cleansing No -Anesthetic Used 4% Lidocaine Solution WC - Nurse 2 - General Ulcer CM Notes Start: 12/02/17 08:28 Freq: Status: Active Protocol: Activity Type Activity Date Activity User E-Sign Co-Sign Detail Recorded Client Recorded Date Recorded By Document 12/02/17 09:09 DV [id number] 12/02/17 09:17 DV 12/02/17 09:09 Wound Center Nurse 2 [Procedure/Treatment] -Time 09:10 -Correct Patient Yes -Correct Side, Site, Position Yes -Correct Procedure Yes -Procedure Performed Yes -Type of Procedure Debridement -Clinical Debridement Subcutaneous -Post Debridement Size (cm) - Length 2.2 -Post Debridement Size (cm) - Width 2.2 -Post Debridement Size (cm) - Depth 0.1 -Total Square Cm 4.84 -Wound/Ulcer Outcome Not Healed -Ulcer Cleansing Rinsed/ Irrigated with Saline -Foul Odor after Cleansing No -Bioengineered Tissue No -Bleeding Controlled with Pressure -Treatment Response Procedure Tolerated Well [See Physician Procedure note for Specifics] Pain Scale: 0-10 Numeric [Pain] -Is Patient Pain Free? Yes Musculoskeletal: No Muscle Wasting Neurological: Cranial nerves II-XII grossly intact Psych/Mental Status: Normal Affect Debridement Note Post-Debridement Measurements/Treatment WC - Nurse 2 - General Ulcer CM Notes Start: 12/02/17 08:28 Freq: Status: Active Protocol: Activity Type Activity Date Activity User E-Sign Co-Sign Detail Recorded Client Recorded Date Recorded By Document 12/02/17 09:09 DV [id number] 12/02/17 09:17 DV 12/02/17 09:09 Wound Center Nurse 2 #1 R forearm -Time 09:10 -Correct Patient Yes -Correct Side, Site, Position Yes -Correct Procedure Yes -Procedure Performed Yes -Type of Procedure Debridement -Clinical Debridement Subcutaneous -Post Debridement Size (cm) - Length 2.2 -Post Debridement Size (cm) - Width 2.2 -Post Debridement Size (cm) - Depth 0.1 -Total Square Cm 4.84 -Wound/Ulcer Outcome Not Healed -Ulcer Cleansing Rinsed/ Irrigated with Saline -Foul Odor after Cleansing No -Bioengineered Tissue No -Bleeding Controlled with Pressure -Treatment Response Procedure Tolerated Well Pain Scale: 0-10 Numeric Is Patient Pain Free? Yes Wound debrided: Right Forerm Wound Grade/Stage: Stage II Type of Debridement: Excisional debridement Anesthesia Used: 4% Lidocaine Solution Depth: Down to and including healthy tissue, in the subcutaneous layer Percentage of wound debrided: 100 Instrument Used: 5mm curette Tissue Removed: Biofilm and devitalized tissue Severity: Fat Layer Exposed Amount of bleeding with debridement: Mild Bleeding Controlled with: Pressure Patient tolerated procedure well Assessment/Plan Active Problems Open wound of right forearm with complication (Acute) Smoker (Chronic) Diabetes (Chronic) Assessment: Right forearm wound s/p surgical debridment and wound vac. Type 2 Diabetes Mellitus, well controlled. Plan: Ms. Muhammad presents here for continued wound care. Wound appears to have done wll compared to prior images. No new complaints at this time. Debridement done as documented above, procedure was well tolerated. Apply pomogran daily with adpatic over top. Keep area protected. Optimal blood sugar control and smoking cessation encouraged. Follow up in 2 weeks.
== END 2017-12-11 23:59 ==
LOC: WC 08:25
PROVIDERS: Visit Provider Internal Medicine
DX: S51.851A Open bite of right forearm, initial encounter (principal); L03.113 Cellulitis of right upper limb; W57.XXXA Bitten or stung by nonvenomous insect and other nonvenomous arthropods, initial encounter; E11.9 Type 2 diabetes mellitus without complications; F17.200 Nicotine dependence, unspecified, uncomplicated
CPT/HCPCS: 11042; 99213; G0463

== ENCOUNTER 2018-01-06 08:56 | Outpatient (RCR) | payer MEDICAID, SELFPAY ==
[2017-12-12 01:15] VITALS: BP 135/96; PULSE 88; RESP 16; TEMP 37
[2018-01-06 08:57] VITALS: TEMP 37.2
--- NOTE | 2018-01-06 09:26 | PCM.WC.HP ---
(1) Open wound of right forearm with complication Status: Acute Current Visit: Yes Code(s): S51.801A - Unspecified open wound of right forearm, initial encounter (2) Smoker Status: Chronic Current Visit: Yes Code(s): F17.200 - Nicotine dependence, unspecified, uncomplicated (3) Type 2 diabetes mellitus with other skin ulcer Status: Chronic Current Visit: Yes Code(s): E11.622 - Type 2 diabetes mellitus with other skin ulcer; L98.499 - Non-pressure chronic ulcer of skin of other sites with unspecified severity Comment: nonhealing diabetic ulcer right forearm History of Present Illness Date of Service: 01/06/18 Chief Complaint: Right Forearm Wound History of Wound: Ms. Gage is a 52yo who presents to the wound center for management of her right forearm wound. She has had an eventful last couple of weeks. Injury was assumed to have been possibly from a spider bite however, she subsequently had secondary infection/cellulitis. She was was admitted at the [facility] and had surgical debridement and then a wound vac placement. She was last seen here over a month ago and had been dressing daily with promogran. She however represents here due to apparent stalling over the last 2 weeks. She denies any discharge from the wound site and also denies chills, fever, nausea, vomitting or otherwise feeling of unwell. Past Medical History Past Medical History: Chronic Problems Type 2 diabetes mellitus with other skin ulcer (Chronic) nonhealing diabetic ulcer right forearm Smoker (Chronic) Diabetes (Chronic) Arthritis (Chronic) RLS (restless legs syndrome) (Chronic) Depression (Chronic) Surgical History: - - . Allergies/Adverse Reactions: Allergies No Known Allergies Allergy (Verified 12/02/17 08:41) Home Medications: Ambulatory Orders Medication Instructions Recorded Gabapentin [Neurontin] 100 mg PO TID 10/18/17 Lamotrigine [Lamictal] 50 mg PO QHS 10/18/17 Meloxicam [Mobic] 15 mg PO DAILY 10/18/17 Sertraline HCl [Zoloft] 100 mg PO QHS 10/18/17 Cefadroxil [Duricef] 1,000 mg PO BID #12 cap 10/21/17 Lactobacillus Acidophilus 1 tab PO BID #20 tab 10/21/17 [Acidophilus] gabapentin 300 mg capsule See Label Instructions PO 4X/DAY 11/11/17 #240 cap - Family History Maternal Diabetes Paternal Cancer Smoking Status: Current every day smoker Review of Systems Constitutional: Denies: Anorexia, Malaise, Weakness Eyes: Denies: Pain, Redness HEENT: Denies: Difficulty Hearing, Difficulty Swallowing Cardiovascular: Denies: Chest Pain, Chest Tightness Respiratory: Denies: Cough, Shortness of Breath Gastrointestinal: Denies: Abdominal Pain, Hematemesis, Vomiting Genitourinary: Denies: Hematuria Skin: Denies: Jaundice - Physical Exam Vital Signs Temp Pulse Resp BP 98.9 F 88 16 135/96 H 01/06/18 08:57 12/12/17 01:15 12/12/17 01:15 12/12/17 01:15 General: Alert, Oriented x3, Cooperative, No apparent distress HEENT: Atraumatic Oral: Moist Mucosa Neck: Supple Lungs: Normal air movement Cardiovascular: Regular rate Abdomen: Soft, Non Tender Extremities: No edema Skin: Ulcer/ Wound Wound Measurements and Assessment WC - Nurse 1 - General Ulcer Measurement Start: 01/06/18 08:57 Freq: Status: Active Protocol: Activity Type Activity Date Activity User E-Sign Co-Sign Detail Recorded Client Recorded Date Recorded By Document 01/06/18 08:57 DL [id number] 01/06/18 09:01 DL 01/06/18 08:57 Wound Center Nurse 1 [Ulcer Assessment] #1 R forearm -Current Size (cm) - Length 0.6 -Current Size (cm) - Width 0.5 -Current Size (cm) - Depth 0.2 -Total Square Cm 0.30 -Photo Taken Yes -Exudate Amt Small (1-33%) -Exudate Type Serosanguineous -Wound Margin Distinct, Outline Attached -Granulation Amt Large (67-100%) -Granulation Quality Gilliam -Necrosis Amt Small (1-33%) -Necrotic Tissue Type Eschar -Structure Exposed N/A -Texture (Maryuri-wound Skin Appearance) Scarring -Moisture (Maryuri-wound Skin Appearance Maceration ) -Color (Maryuri-wound Skin Appearance) No Abnormality -Temperature (Maryuri-wound Skin No Abnormality Appearance) (Pt Warm) -Tenderness on Palpation (Maryuri-wound No Skin Appearance) -Ulcer Cleansing Wound Cleanser -Foul Odor after Cleansing No -Anesthetic Used 4% Lidocaine Solution WC - Nurse 2 - General Ulcer CM Notes Start: 01/06/18 08:57 Freq: Status: Active Protocol: Activity Type Activity Date Activity User E-Sign Co-Sign Detail Recorded Client Recorded Date Recorded By Document 01/06/18 09:18 [id number] 01/06/18 09:24 01/06/18 09:18 Wound Center Nurse 2 [Procedure/Treatment] -Time 09:23 -Correct Patient Yes -Correct Side, Site, Position Yes -Correct Procedure Yes -Procedure Performed Yes -Type of Procedure Debridement -Clinical Debridement Subcutaneous -Post Debridement Size (cm) - Length 0.6 -Post Debridement Size (cm) - Width 0.4 -Post Debridement Size (cm) - Depth 0.2 -Total Square Cm 0.24 -Wound/Ulcer Outcome Not Healed -Ulcer Cleansing Rinsed/ Irrigated with Saline -Foul Odor after Cleansing No -Bioengineered Tissue No -Topical Lidocaine (%) 4 -Bleeding Controlled with Pressure -Treatment Response Procedure Tolerated Well [See Physician Procedure note for Specifics] Pain Scale: 0-10 Numeric [Pain] -Is Patient Pain Free? Yes Musculoskeletal: No Muscle Wasting Neurological: Cranial nerves II-XII grossly intact Psych/Mental Status: Normal Affect Debridement Note Post-Debridement Measurements/Treatment WC - Nurse 2 - General Ulcer CM Notes Start: 01/06/18 08:57 Freq: Status: Active Protocol: Activity Type Activity Date Activity User E-Sign Co-Sign Detail Recorded Client Recorded Date Recorded By Document 01/06/18 09:18 [id number] 01/06/18 09:24 01/06/18 09:18 Wound Center Nurse 2 #1 R forearm -Time 09:23 -Correct Patient Yes -Correct Side, Site, Position Yes -Correct Procedure Yes -Procedure Performed Yes -Type of Procedure Debridement -Clinical Debridement Subcutaneous -Post Debridement Size (cm) - Length 0.6 -Post Debridement Size (cm) - Width 0.4 -Post Debridement Size (cm) - Depth 0.2 -Total Square Cm 0.24 -Wound/Ulcer Outcome Not Healed -Ulcer Cleansing Rinsed/ Irrigated with Saline -Foul Odor after Cleansing No -Bioengineered Tissue No -Topical Lidocaine (%) 4 -Bleeding Controlled with Pressure -Treatment Response Procedure Tolerated Well Pain Scale: 0-10 Numeric Is Patient Pain Free? Yes Wound debrided: Right Forearm Wound Grade/Stage: Stage II Type of Debridement: Excisional debridement Anesthesia Used: 4% Lidocaine Solution Depth: Down to and including healthy tissue, in the subcutaneous layer Percentage of wound debrided: 100 Instrument Used: 3mm curette Tissue Removed: Slough an devitalized tissue Severity: Fat Layer Exposed Amount of bleeding with debridement: Mild Bleeding Controlled with: Pressure Patient tolerated procedure well Assessment/Plan Active Problems Type 2 diabetes mellitus with other skin ulcer (Chronic) nonhealing diabetic ulcer right forearm Open wound of right forearm with complication (Acute) Smoker (Chronic) Assessment: Right forearm wound s/p surgical debridment and wound vac. Type 2 Diabetes Mellitus, well controlled. Plan: Ms. Muhammad presents here for continued wound care. Wound appears to have done well depite apparent stalling over the last 2 weeks. Debridement done as documented above, procedure was well tolerated. Apply Candi daily with adpatic over top. Keep area protected. Optimal blood sugar control and smoking cessation encouraged. Follow up in 1 week. Advised to call with any questions or concerns.
== END 2018-01-11 23:59 ==
LOC: WC 08:56
PROVIDERS: Visit Provider Internal Medicine
DX: E11.622 Type 2 diabetes mellitus with other skin ulcer (principal); L98.492 Non-pressure chronic ulcer of skin of other sites with fat layer exposed; F17.200 Nicotine dependence, unspecified, uncomplicated
CPT/HCPCS: 11042

== ENCOUNTER 2018-01-27 08:00 | Outpatient (RCR) | payer MEDICAID, SELFPAY ==
[2018-01-12 01:09] VITALS: BP 135/96; PULSE 88; RESP 16; TEMP 37.2
[2018-01-13 09:44] VITALS: BP 127/90; PULSE 83; RESP 20; TEMP 37.1
--- NOTE | 2018-01-13 10:19 | PCM.WC.PN ---
(1) Open wound of right forearm with complication Status: Acute Current Visit: No Code(s): S51.801A - Unspecified open wound of right forearm, initial encounter (2) Diabetes Status: Chronic Current Visit: No Code(s): E11.9 - Type 2 diabetes mellitus without complications (3) Smoker Status: Chronic Current Visit: No Code(s): F17.200 - Nicotine dependence, unspecified, uncomplicated Type of Wound Date of Service: 01/13/18 Chief Complaint: Right Forearm Wound History of Wound: Ms. Gage is a 52yo who presents to the wound center for management of her right forearm wound. She has had an eventful last couple of weeks. Injury was assumed to have been possibly from a spider bite however, she subsequently had secondary infection/cellulitis. She was was admitted at the [facility] and had surgical debridement and then a wound vac placement. She was last seen here over a month ago and had been dressing daily with promogran. She however represents here due to apparent stalling over the last 2 weeks. She denies any discharge from the wound site and also denies chills, fever, nausea, vomitting or otherwise feeling of unwell. Progress of Wound: Stable. - Physical Exam Vital Signs Temp Pulse Resp BP 98.8 F 83 20 H 127/90 H 01/13/18 09:44 01/13/18 09:44 01/13/18 09:44 01/13/18 09:44 General: Alert, Oriented x3, Cooperative, No apparent distress HEENT: Atraumatic Oral: Moist Mucosa Neck: Supple Lungs: Normal air movement Extremities: No cyanosis Skin: Ulcer/ Wound Wound Measurements and Assessment WC - Nurse 1 - General Ulcer Measurement Start: 01/13/18 09:43 Freq: Status: Active Protocol: Activity Type Activity Date Activity User E-Sign Co-Sign Detail Recorded Client Recorded Date Recorded By Document 01/13/18 09:44 DL [id number] 01/13/18 09:48 DL 01/13/18 09:44 Wound Center Nurse 1 [Ulcer Assessment] #1 R forearm -Current Size (cm) - Length 0.5 -Current Size (cm) - Width 0.4 -Current Size (cm) - Depth 0.2 -Total Square Cm 0.20 -Photo Taken No -Exudate Amt None Present (0 %) -Wound Margin Distinct, Outline Attached -Granulation Amt Small (1-33%) -Granulation Quality Red -Necrosis Amt None Present (0 %) -Structure Exposed N/A -Texture (Maryuri-wound Skin Appearance) Scarring -Moisture (Maryuri-wound Skin Appearance No Abnormality ) -Color (Maryuri-wound Skin Appearance) Rubor -Temperature (Maryuri-wound Skin No Abnormality Appearance) (Pt Warm) -Ulcer Cleansing Rinsed/ Irrigated with Saline -Foul Odor after Cleansing No -Anesthetic Used 4% Lidocaine Solution - Nurse 2 - General Ulcer CM Notes Start: 01/13/18 09:43 Freq: Status: Active Protocol: Activity Type Activity Date Activity User E-Sign Co-Sign Detail Recorded Client Recorded Date Recorded By Document 01/13/18 10:17 KANU [id number] 01/13/18 10:18 01/13/18 10:17 Wound Center Nurse 2 [Procedure/Treatment] -Time 10:18 -Correct Patient Yes -Correct Side, Site, Position Yes -Correct Procedure Yes -Procedure Performed Yes -Type of Procedure Debridement -Clinical Debridement Subcutaneous -Post Debridement Size (cm) - Length 0.6 -Post Debridement Size (cm) - Width 0.4 -Post Debridement Size (cm) - Depth 0.2 -Total Square Cm 0.24 -Wound/Ulcer Outcome Not Healed -Ulcer Cleansing Rinsed/ Irrigated with Saline -Foul Odor after Cleansing No -Bioengineered Tissue No -Topical Lidocaine (%) 4 -Lidocaine (ml) 5 -Bleeding Controlled with NA -Treatment Response Procedure Tolerated Well [See Physician Procedure note for Specifics] Pain Scale: 0-10 Numeric [Pain] -Is Patient Pain Free? Yes Musculoskeletal: No Muscle Wasting Neurological: Cranial nerves II-XII grossly intact Psych/Mental Status: Normal Affect Debridement Note Post-Debridement Measurements/Treatment - Nurse 2 - General Ulcer CM Notes Start: 01/13/18 09:43 Freq: Status: Active Protocol: Activity Type Activity Date Activity User E-Sign Co-Sign Detail Recorded Client Recorded Date Recorded By Document 01/13/18 10:17 KANU [id number] 01/13/18 10:18 01/13/18 10:17 Wound Center Nurse 2 #1 R forearm -Time 10:18 -Correct Patient Yes -Correct Side, Site, Position Yes -Correct Procedure Yes -Procedure Performed Yes -Type of Procedure Debridement -Clinical Debridement Subcutaneous -Post Debridement Size (cm) - Length 0.6 -Post Debridement Size (cm) - Width 0.4 -Post Debridement Size (cm) - Depth 0.2 -Total Square Cm 0.24 -Wound/Ulcer Outcome Not Healed -Ulcer Cleansing Rinsed/ Irrigated with Saline -Foul Odor after Cleansing No -Bioengineered Tissue No -Topical Lidocaine (%) 4 -Lidocaine (ml) 5 -Bleeding Controlled with NA -Treatment Response Procedure Tolerated Well Pain Scale: 0-10 Numeric Is Patient Pain Free? Yes Wound debrided: Right Fore arm Wound Grade/Stage: Stage II Type of Debridement: Excisional debridement Anesthesia Used: 4% Lidocaine Solution Depth: Down to and including healthy tissue, in the subcutaneous layer Percentage of wound debrided: 100 Instrument Used: 3mm curette Tissue Removed: Slough and devitalized tissue Severity: Fat Layer Exposed Amount of bleeding with debridement: Mild Bleeding Controlled with: Pressure Patient tolerated procedure well Assessment/Plan Assessment: Right forearm wound s/p surgical debridment and wound vac. Type 2 Diabetes Mellitus, well controlled. Plan: Stable wound. Debridement done as documented above, procedure was well tolerated. Continue Candi daily with adaptic over top. Keep area protected. Optimal blood sugar control and smoking cessation encouraged. Follow up in 2 weeks per patient request. Advised to call with any questions or concerns.
--- NOTE | 2018-01-13 10:24 | PN.PCM_ITS ---
(1) Open wound of right forearm with complication Status: Acute Current Visit: No Code(s): S51.801A - Unspecified open wound of right forearm, initial encounter (2) Diabetes Status: Chronic Current Visit: No Code(s): E11.9 - Type 2 diabetes mellitus without complications (3) Smoker Status: Chronic Current Visit: No Code(s): F17.200 - Nicotine dependence, unspecified, uncomplicated Type of Wound Date of Service: 01/13/18 Chief Complaint: Right Forearm Wound History of Wound: Ms. Gage is a 52yo who presents to the wound center for management of her right forearm wound. She has had an eventful last couple of weeks. Injury was assumed to have been possibly from a spider bite however, she subsequently had secondary infection/cellulitis. She was was admitted at the [facility] and had surgical debridement and then a wound vac placement. She was last seen here over a month ago and had been dressing daily with promogran. She however represents here due to apparent stalling over the last 2 weeks. She denies any discharge from the wound site and also denies chills, fever, nausea, vomitting or otherwise feeling of unwell. Progress of Wound: Stable. - Physical Exam Vital Signs Temp Pulse Resp BP 98.8 F 83 20 H 127/90 H 01/13/18 09:44 01/13/18 09:44 01/13/18 09:44 01/13/18 09:44 General: Alert, Oriented x3, Cooperative, No apparent distress HEENT: Atraumatic Oral: Moist Mucosa Neck: Supple Lungs: Normal air movement Extremities: No cyanosis Skin: Ulcer/ Wound Wound Measurements and Assessment WC - Nurse 1 - General Ulcer Measurement Start: 01/13/18 09:43 Freq: Status: Active Protocol: Activity Type Activity Date Activity User E-Sign Co-Sign Detail Recorded Client Recorded Date Recorded By Document 01/13/18 09:44 DL [id number] 01/13/18 09:48 DL 01/13/18 09:44 Wound Center Nurse 1 [Ulcer Assessment] #1 R forearm -Current Size (cm) - Length 0.5 -Current Size (cm) - Width 0.4 -Current Size (cm) - Depth 0.2 -Total Square Cm 0.20 -Photo Taken No -Exudate Amt None Present (0 %) -Wound Margin Distinct, Outline Attached -Granulation Amt Small (1-33%) -Granulation Quality Red -Necrosis Amt None Present (0 %) -Structure Exposed N/A -Texture (Maryuri-wound Skin Appearance) Scarring -Moisture (Maryuri-wound Skin Appearance No Abnormality ) -Color (Maryuri-wound Skin Appearance) Rubor -Temperature (Maryuri-wound Skin No Abnormality Appearance) (Pt Warm) -Ulcer Cleansing Rinsed/ Irrigated with Saline -Foul Odor after Cleansing No -Anesthetic Used 4% Lidocaine Solution - Nurse 2 - General Ulcer CM Notes Start: 01/13/18 09:43 Freq: Status: Active Protocol: Activity Type Activity Date Activity User E-Sign Co-Sign Detail Recorded Client Recorded Date Recorded By Document 01/13/18 10:17 KANU [id number] 01/13/18 10:18 01/13/18 10:17 Wound Center Nurse 2 [Procedure/Treatment] -Time 10:18 -Correct Patient Yes -Correct Side, Site, Position Yes -Correct Procedure Yes -Procedure Performed Yes -Type of Procedure Debridement -Clinical Debridement Subcutaneous -Post Debridement Size (cm) - Length 0.6 -Post Debridement Size (cm) - Width 0.4 -Post Debridement Size (cm) - Depth 0.2 -Total Square Cm 0.24 -Wound/Ulcer Outcome Not Healed -Ulcer Cleansing Rinsed/ Irrigated with Saline -Foul Odor after Cleansing No -Bioengineered Tissue No -Topical Lidocaine (%) 4 -Lidocaine (ml) 5 -Bleeding Controlled with NA -Treatment Response Procedure Tolerated Well [See Physician Procedure note for Specifics] Pain Scale: 0-10 Numeric [Pain] -Is Patient Pain Free? Yes Musculoskeletal: No Muscle Wasting Neurological: Cranial nerves II-XII grossly intact Psych/Mental Status: Normal Affect Debridement Note Post-Debridement Measurements/Treatment - Nurse 2 - General Ulcer CM Notes Start: 01/13/18 09:43 Freq: Status: Active Protocol: Activity Type Activity Date Activity User E-Sign Co-Sign Detail Recorded Client Recorded Date Recorded By Document 01/13/18 10:17 KANU [id number] 01/13/18 10:18 01/13/18 10:17 Wound Center Nurse 2 #1 R forearm -Time 10:18 -Correct Patient Yes -Correct Side, Site, Position Yes -Correct Procedure Yes -Procedure Performed Yes -Type of Procedure Debridement -Clinical Debridement Subcutaneous -Post Debridement Size (cm) - Length 0.6 -Post Debridement Size (cm) - Width 0.4 -Post Debridement Size (cm) - Depth 0.2 -Total Square Cm 0.24 -Wound/Ulcer Outcome Not Healed -Ulcer Cleansing Rinsed/ Irrigated with Saline -Foul Odor after Cleansing No -Bioengineered Tissue No -Topical Lidocaine (%) 4 -Lidocaine (ml) 5 -Bleeding Controlled with NA -Treatment Response Procedure Tolerated Well Pain Scale: 0-10 Numeric Is Patient Pain Free? Yes Wound debrided: Right Fore arm Wound Grade/Stage: Stage II Type of Debridement: Excisional debridement Anesthesia Used: 4% Lidocaine Solution Depth: Down to and including healthy tissue, in the subcutaneous layer Percentage of wound debrided: 100 Instrument Used: 3mm curette Tissue Removed: Slough and devitalized tissue Severity: Fat Layer Exposed Amount of bleeding with debridement: Mild Bleeding Controlled with: Pressure Patient tolerated procedure well Assessment/Plan Assessment: Right forearm wound s/p surgical debridment and wound vac. Type 2 Diabetes Mellitus, well controlled. Plan: Stable wound. Debridement done as documented above, procedure was well tolerated. Continue Candi daily with adaptic over top. Keep area protected. Optimal blood sugar control and smoking cessation encouraged. Follow up in 2 weeks per patient request. Advised to call with any questions or concerns.
[2018-01-27 08:40] VITALS: BP 132/77; PULSE 67; RESP 16; TEMP 36.2
--- NOTE | 2018-01-27 09:27 | PN.PCM_ITS ---
(1) Open wound of right forearm with complication Status: Acute Current Visit: No Code(s): S51.801A - Unspecified open wound of right forearm, initial encounter (2) Diabetes Status: Chronic Current Visit: No Code(s): E11.9 - Type 2 diabetes mellitus without complications (3) Smoker Status: Chronic Current Visit: No Code(s): F17.200 - Nicotine dependence, unspecified, uncomplicated Type of Wound Date of Service: 01/27/18 Chief Complaint: Right Forearm Wound History of Wound: Ms. Gage is a 52yo who presents to the wound center for management of her right forearm wound. She has had an eventful last couple of weeks. Injury was assumed to have been possibly from a spider bite however, she subsequently had secondary infection/cellulitis. She was was admitted at the [facility] and had surgical debridement and then a wound vac placement. She was last seen here over a month ago and had been dressing daily with promogran. She however represents here due to apparent stalling over the last 2 weeks. She denies any discharge from the wound site and also denies chills, fever, nausea, vomitting or otherwise feeling of unwell. Progress of Wound: Improving. - Physical Exam Vital Signs Temp Pulse Resp BP 97.1 F L 67 16 132/77 H 01/27/18 08:40 01/27/18 08:40 01/27/18 08:40 01/27/18 08:40 General: Alert, Oriented x3, Cooperative, No apparent distress HEENT: Atraumatic, Normocephalic Oral: Moist Mucosa Neck: Supple Lungs: Normal air movement Abdomen: Non Tender Extremities: No cyanosis Skin: Ulcer/ Wound Wound Measurements and Assessment WC - Nurse 1 - General Ulcer Measurement Start: 01/13/18 09:43 Freq: Status: Active Protocol: Activity Type Activity Date Activity User E-Sign Co-Sign Detail Recorded Client Recorded Date Recorded By Document 01/27/18 08:40 DL [id number] 01/27/18 08:44 DL 01/27/18 08:40 Wound Center Nurse 1 [Ulcer Assessment] #1 R forearm -Current Size (cm) - Length 0.4 -Current Size (cm) - Width 0.3 -Current Size (cm) - Depth 0.2 -Total Square Cm 0.12 -Photo Taken No -Exudate Amt Small (1-33%) -Exudate Type Serosanguineous -Wound Margin Distinct, Outline Attached -Granulation Amt Large (67-100%) -Granulation Quality Pale [place] -Necrosis Amt Small (1-33%) -Structure Exposed N/A -Texture (Maryuri-wound Skin Appearance) Scarring -Moisture (Maryuri-wound Skin Appearance No Abnormality ) -Color (Maryuri-wound Skin Appearance) No Abnormality -Temperature (Maryuri-wound Skin No Abnormality Appearance) (Pt Warm) -Ulcer Cleansing Rinsed/ Irrigated with Saline -Foul Odor after Cleansing No -Anesthetic Used 4% Lidocaine Solution - Nurse 2 - General Ulcer CM Notes Start: 01/13/18 09:43 Freq: Status: Active Protocol: Activity Type Activity Date Activity User E-Sign Co-Sign Detail Recorded Client Recorded Date Recorded By Document 01/27/18 09:23 [id number] 01/27/18 09:24 01/27/18 09:23 Wound Center Nurse 2 [Procedure/Treatment] -Time 09:23 -Correct Patient Yes -Correct Side, Site, Position Yes -Correct Procedure Yes -Procedure Performed Yes -Type of Procedure Debridement -Clinical Debridement Subcutaneous -Post Debridement Size (cm) - Length 0.4 -Post Debridement Size (cm) - Width 0.3 -Post Debridement Size (cm) - Depth 0.2 -Total Square Cm 0.12 -Wound/Ulcer Outcome Not Healed -Ulcer Cleansing Rinsed/ Irrigated with Saline -Foul Odor after Cleansing No -Bioengineered Tissue No -Bleeding Controlled with NA -Treatment Response Procedure Tolerated Well [See Physician Procedure note for Specifics] Pain Scale: 0-10 Numeric [Pain] -Is Patient Pain Free? Yes Musculoskeletal: No Muscle Wasting Neurological: Cranial nerves II-XII grossly intact Psych/Mental Status: Normal Affect Debridement Note Post-Debridement Measurements/Treatment - Nurse 2 - General Ulcer CM Notes Start: 01/13/18 09:43 Freq: Status: Active Protocol: Activity Type Activity Date Activity User E-Sign Co-Sign Detail Recorded Client Recorded Date Recorded By Document 01/13/18 10:17 [id number] 01/13/18 10:18 JS Document 01/27/18 09:23 [id number] 01/27/18 09:24 JS 01/13/18 01/27/18 10:17 09:23 Wound Center Nurse 2 #1 R forearm -Time 10:18 09:23 -Correct Patient Yes Yes -Correct Side, Site, Position Yes Yes -Correct Procedure Yes Yes -Procedure Performed Yes Yes -Type of Procedure Debridement Debridement -Clinical Debridement Subcutaneous Subcutaneous -Post Debridement Size (cm) - Length 0.6 0.4 -Post Debridement Size (cm) - Width 0.4 0.3 -Post Debridement Size (cm) - Depth 0.2 0.2 -Total Square Cm 0.24 0.12 -Wound/Ulcer Outcome Not Healed Not Healed -Ulcer Cleansing Rinsed/ Rinsed/ Irrigated with Irrigated with Saline Saline -Foul Odor after Cleansing No No -Bioengineered Tissue No No -Topical Lidocaine (%) 4 -Lidocaine (ml) 5 -Bleeding Controlled with NA NA -Treatment Response Procedure Procedure Tolerated Well Tolerated Well Pain Scale: 0-10 Numeric Is Patient Pain Free? Yes Yes Wound debrided: Right Forearm Wound Grade/Stage: Stage II Type of Debridement: Excisional debridement Anesthesia Used: 4% Lidocaine Solution Depth: Down to and including healthy tissue, in the subcutaneous layer Percentage of wound debrided: 100 Instrument Used: - - 1MM Tissue Removed: Slough and devitalized tissue Severity: Fat Layer Exposed Amount of bleeding with debridement: Mild Bleeding Controlled with: Pressure Patient tolerated procedure well Assessment/Plan Assessment: Right forearm wound s/p surgical debridment and wound vac. Type 2 Diabetes Mellitus, well controlled. Plan: Improving wound. Debridement done as documented above, procedure was well tolerated. Continue Candi daily with adaptic over top. Keep area protected. Optimal blood sugar control and smoking cessation encouraged. Follow up in 2 weeks per patient request. Advised to call with any questions or concerns.
== END 2018-02-11 23:59 ==
LOC: WC 08:00
PROVIDERS: Visit Provider Internal Medicine
DX: S51.831A Puncture wound without foreign body of right forearm, initial encounter (principal); X58.XXXA Exposure to other specified factors, initial encounter; F17.200 Nicotine dependence, unspecified, uncomplicated; E11.9 Type 2 diabetes mellitus without complications
CPT/HCPCS: 11042

== ENCOUNTER 2018-02-17 12:31 | Outpatient (RCR) | payer MEDICAID, SELFPAY ==
[2018-02-12 01:15] VITALS: BP 132/77; PULSE 67; RESP 16; TEMP 36.2
== END 2018-03-13 23:59 ==
LOC: WC 12:31
PROVIDERS: Visit Provider Internal Medicine
DX: Z09 Encounter for follow-up examination after completed treatment for conditions other than malignant neoplasm (principal)

== ENCOUNTER 2018-10-28 11:30 | Outpatient (RCR) | payer MEDICAID, SELFPAY ==
--- NOTE | 2018-09-05 09:24 | HP.PTEVAL_ITS ---
Patient's Visit Information DEBORAH GALO is a 53 year old F referred to Physical Therapy by JOSE ALFREDO COBOS with a diagnosis of cervical spondylosis without myelopathy or radiculopathy. Date of Evaluation: 09/05/18 Physical Therapist: Joce Laguerre DPT - Visit Plan Frequency: 2x /Week Duration: 4-6 Weeks Plan: Start with postural control/stability in aquatic setting. Pt. did have benefit with manual distraction this date. May trial manual techniques with not progressing in aquatic setting. - Subjective Findings: Pt. is here today for her initial evaluation with diagnosis of cervical spondylosis without myelopathy or radiculopathy. Pt. reports having cervical spine pain for multiple years, but has been getter worse recently. Pt. 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 Pt. 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 Pt. reports having increased pain since having tissue infection stemming from spider bite on R forearm. Pt. has scaring, but is well healed. Pt. reports having R UE weakness and numbness. Pt. has increasd pain throughout the day, increases with any activity. Pt. has minimal pain in AMs and is able to sleep without increase in symptoms. She has had injections without reduction in symptoms. Pt. is hopeful to reduce symptoms in order to get back to all work and recreational activities without limitations. - Pain Cervical spine Pain Intensity (Out of 10): 5 Pain Intensity Range: 2, 8 R shoulder/UT region Pain Intensity (Out of 10): 5 Pain Intensity Range: 2, 8 - Objective POSTURE: Pt. has general flexed posture. INcreased thoracic kyphosis with increased upper cervical spine ext. Pt. has no lateral shift noted. PALPATION: Pt. has increased symptoms with palpation throughout cervical erector spinea. Pt. has greatest pain at C4-C7, hypomobility noted with spring testing. Pt. has tenderness at R levator scapulea and UT. NERUO: Normal to light and sharp touch. Pt. has 2+ biceps and triceps DTR. Pt. reports tingling throughout R UE. ROM: Cervical spine- flexion mod loss increase NW, ext mod loss incrase NW, SB min loss bilat increase NW, rotation mod loss bilat increase NW. Pt. has full B shoulder ROM without increase in symptoms. - Special Tests C/S Radiculapathy - Left Upper limb tension test: Negative C/S Radiculapathy - Right Upper limb tension test: Negative C/S Radiculapathy - Left Spurlings: Negative C/S Radiculapathy - Right Spurlings: Positive C/S Radiculapathy - Left Cervical distraction: Negative C/S Radiculapathy - Right Cervical distraction: Negative C/S Radiculapathy - Left Relief test: Negative C/S Radiculapathy - Right Relief test: Positive Sharp Lin: Negative Vertebral Artery Test: Negative Alar Ligament Test: Negative Cervical Sitting: Protrusion - Mechanical Response: No effect Cervical Sitting: Protrusion - Symptoms During Testing: No effect Cervical Sitting: Protrusion - Symptoms After Testing: No effect Cervical Sitting: Retraction - Mechanical Response: No effect Cervical Sitting: Retraction - Symptoms During Testing: Decreases Cervical Sitting: Retraction - Symptoms After Testing: No better Cervical Sitting: Sidebend Right - Mechanical Response: No effect Cervical Sitting: Sidebend Right - Symptoms During Testing: Increases Cervical Sitting: Sidebend Right - Symptoms After Testing: No worse Cervical Sitting: Sidebend Left - Mechanical Response: No effect Cervical Sitting: Sidebend Left - Symptoms During Testing: Increases Cervical Sitting: Sidebend Left - Symptoms After Testing: No worse Cervical Sitting: Rotation Right - Mechanical Response: No effect Cervical Sitting: Rotation Right - Symptoms During Testing: Increases Cervical Sitting: Rotation Right - Symptoms After Testing: No worse Cervical Sitting: Rotation Left - Mechanical Response: No effect Cervical Sitting: Rotation Left - Symptoms During Testing: Increases Cervical Sitting: Rotation Left - Symptoms After Testing: No worse Cervical Sitting: Flexion - Mechanical Response: No effect Cervical Sitting: Flexion - Symptoms During Testing: Increases Cervical Sitting: Flexion - Symptoms After Testing: No worse - Goals Goal 1:: Pt. to be I with HEP. Goal Time Frame: 4-6 Weeks Goal 2:: Pt.to have increased cervical spine ROM by 25% in all effected directions. Goal Time Frame: 4-6 Weeks Goal 3:: Pt. to have improved postural awareness noted by maintaining immproved posture throughout therapy session. Goal Time Frame: 4-6 Weeks Goal 4:: Pt. to complete all ADLs and house hold work with 0-2/10 pain in cervical spine and RUE. Goal Time Frame: 4-6 Weeks Goal 5:: Pt. to report decreased tingling in RUE by 25%. - Rehabilitation Potential Physical Therapy Diagnosis: Pt. has signs and symptoms consistent with cervical spondylosis. Pt. does have some some radiating symptoms down the R side with compression and reduction with distraction. Pt. would benefit from PT to improve posture and increase general mobility in aquatic setting. Rehabilitation Potential: Good - Anticipated Interventions Patient/Client Instruction: Educate patient on: Condition, Plan of Care, Risk Factors, Benefits of Fitness Program For the Purpose of:: To facilitate caregiver knowledge, To improve self management, To prevent re-injury, To improve ability to perform tasks related to life management, To improve tolerance to ADL's Therapeutic Exercise to Include: Strength training, Power training, Body mechanics, Postural training, Flexibilty training, In an aquatic setting, Passive ROM, Active ROM, Dynamic Lumbar Stabilization, Bobo Exercises, Scapular Strength/Stabilization For the Purpose of:: To decrease pain, To decrease swelling/inflammation, To increase ROM, To improve nutrient delivery to tissue, To improve muscle performance and motor function, To improve ability to perform ADL's, To decrease level of supervision to perform tasks, To improve health of tissue, To increase flexibility/ROM, To improve endurance Manual Therapy Techniques to Include: Trigger point massage, Mobilization, Passive ROM, Functional dry needling, Soft tissue mobilization For the Purpose of:: To decrease pain, To decrease swelling/inflammation, To increase ROM, To improve nutrient delivery to tissue, To increase oxygenation perfusion, To improve muscle performance and motor function, To improve safety, To improve health and function, To foster healthy habits Thank you for the opportunity to evaluate your patient. For Medicare and Medicare HMO plans, please review the plan of care and approve it. It will need to be FAXED BACK to us at [phone] for Medicare purposes. For Medicare only, by signing this I certify the plan of care. Please let me know if there are questions or concerns regarding this plan of care. Physician Signature: Date:
--- NOTE | 2018-10-31 07:39 | HP.PTREVAL_ITS ---
JOSE ALFREDO COBOS, It has been my pleasure to treat DEBORAH GALO over the last 6 visits for cervical spondylosis without myelopathy or radiculopathy. Please see the progress note below for an update on the physical therapy plan of care! Subjective: Pt. reports that her symptoms are getting worse at times. Pt. reports having chronic low back and cervical spine symptoms. Pt. reports having some relief with aquatic exercises, but overall she is not improving. Objective/Function: ROM: CERVICAL SPINE- flexion nil loss mild increase NW, ext mod loss increase NW, SB min loss bilat increase NW, rotation mod loss bilat increase NW. Pt. has normal shoudler ROM withotu increase in symptoms. Lumbar spine: flexion min loss increase NW, ext mod loss increase NW, SB min loss increase NW, rotation mod loss bilat increase NW. MMT: 4/5 throuhgout UEs. Pt. reports radiating pain down bilateral arms, but is hard to tell if symptoms are from previous spider bite on her R forearm. Pt. does have positive spurlings testing, but bilateral as well. Plan Plan: Pt. has had minimal positive changes with cervical spine during PT. Pt. continues to report increased radiating symptoms down her bilateral arms L>R. Pt. reports decreased temporary symptoms in aquatic setting, but not lasting. Pt. reports being frustrated. Pt. will be referrred back to physician at this point in time. Goals Goal 1:: Pt. to be I with HEP. Goal Time Frame: 4-6 Weeks Goal Progress: Goal Met Goal 2:: Pt.to have increased cervical spine ROM by 25% in all effected directions. Goal Time Frame: 4-6 Weeks Goal 3:: Pt. to have improved postural awareness noted by maintaining immproved posture throughout therapy session. Goal Time Frame: 4-6 Weeks Goal Progress: Progressing Goal 4:: Pt. to complete all ADLs and house hold work with 0-2/10 pain in cervical spine and RUE. Goal Time Frame: 4-6 Weeks Goal Progress: Not Progressing Goal 5:: Pt. to report decreased tingling in RUE by 25%. Goal Progress: Not Progressing Anticipated Interventions Patient/Client Instruction: Educate patient on: Condition, Plan of Care, Risk Factors, Benefits of Fitness Program For the Purpose of:: To facilitate caregiver knowledge, To improve self management, To prevent re-injury, To improve ability to perform tasks related to life management, To improve tolerance to ADL's Therapeutic Exercise to Include: Strength training, Power training, Body mechanics, Postural training, Flexibilty training, In an aquatic setting, Passive ROM, Active ROM, Dynamic Lumbar Stabilization, Bobo Exercises, Scapular Strength/Stabilization For the Purpose of:: To decrease pain, To decrease swelling/inflammation, To increase ROM, To improve nutrient delivery to tissue, To improve muscle performance and motor function, To improve ability to perform ADL's, To decrease level of supervision to perform tasks, To improve health of tissue, To increase flexibility/ROM, To improve endurance Manual Therapy Techniques to Include: Trigger point massage, Mobilization, Pa ssive ROM, Functional dry needling, Soft tissue mobilization For the Purpose of:: To decrease pain, To decrease swelling/inflammation, To increase ROM, To improve nutrient delivery to tissue, To increase oxygenation perfusion, To improve muscle performance and motor function, To improve safety, To improve health and function, To foster healthy habits Please do not hesitate to contact me at [phone] by phone or if you have questions or concerns regarding this new plan of care! Sincerely, Joce Laguerre DPT
--- NOTE | 2019-02-15 13:47 | HP.PTDCSUM ---
HP - PT D/C Summary It has been my pleasure to treat DEBORAH GALO under orders from JOSE ALFREDO COBOS, for the diagnosis of cervical spondylosis without myelopathy or radiculopathy for a total of 6 visit(s). Discharge Date: Please see the following information for a summary of their discharge status. - Subjective Subjective: Pt. reports that her symptoms are getting worse at times. Pt. reports having chronic low back and cervical spine symptoms. Pt. reports having some relief with aquatic exercises, but overall she is not improving. - Pain Cervical spine Pain Intensity (Out of 10): 4 R shoulder/UT region Pain Intensity (Out of 10): 4 Lumbar Spine Pain Intensity (Out of 10): 4 - Overall Improvement % Improvement: 25 - Objective Objective/Function: ROM: CERVICAL SPINE- flexion nil loss mild increase NW, ext mod loss increase NW, SB min loss bilat increase NW, rotation mod loss bilat increase NW. Pt. has normal shoudler ROM withotu increase in symptoms. Lumbar spine: flexion min loss increase NW, ext mod loss increase NW, SB min loss increase NW, rotation mod loss bilat increase NW. MMT: 4/5 throuhgout UEs. Pt. reports radiating pain down bilateral arms, but is hard to tell if symptoms are from previous spider bite on her R forearm. Pt. does have positive spurlings testing, but bilateral as well. - Goals Goal 1:: Pt. to be I with HEP. Goal Progress: Goal Met Goal 2:: Pt.to have increased cervical spine ROM by 25% in all effected directions. Goal 3:: Pt. to have improved postural awareness noted by maintaining immproved posture throughout therapy session. Goal Progress: Progressing Goal 4:: Pt. to complete all ADLs and house hold work with 0-2/10 pain in cervical spine and RUE. Goal Progress: Not Progressing Goal 5:: Pt. to report decreased tingling in RUE by 25%. Goal Progress: Not Progressing - Plan Plan: Pt. has had minimal positive changes with cervical spine during PT. Pt. continues to report increased radiating symptoms down her bilateral arms L>R. Pt. reports decreased temporary symptoms in aquatic setting, but not lasting. Pt. reports being frustrated. Pt. will be referrred back to physician at this point in time. - D/C Information If there are questions or concerns regarding this patient's physical therapy, please feel free to call me at [phone]. Thank you for the referral of this patient. Sincerely, LUIS SiuT
== END 2018-10-28 19:00 | disposition home or self-care (01) ==
LOC: PT 11:30
DX: M47.812 Spondylosis without myelopathy or radiculopathy, cervical region (principal)
CPT/HCPCS: 97113; 97161; 97530